=== PATIENT | male | born 1960 | race Caucasian/White ===

== ENCOUNTER → 2018-01-13 08:02 | Outpatient (CLI) | payer BC, SELFPAY ==
--- NOTE | 2018-01-13 08:05 | RAD_ITS ---
STUDY: X-RAY - ABDOMEN/PELVIS REASON FOR EXAM: Male, 57 years old. 2 month history of left-sided pain. TECHNIQUE: Two AP supine views of the abdomen and pelvis. COMPARISON: None. FINDINGS: Normal visualized lung bases. There is a moderate amount of colonic fecal material. The visualized liver, spleen and kidneys are grossly normal in size and morphology. Normal soft tissue structures. There are diffuse degenerative changes of the visualized lumbar spine. RAD/Abdomen Single View IMPRESSION: Moderate amount of fecal material is seen in the colon. Electronically Signed: Erwin Gonzalez MD at 9:39 EST Tel [phone], Service support ,
== END ==
PROVIDERS: Family Provider Family Medicine; PCP Family Medicine; Visit Provider Family Medicine
DX: N20.0 Calculus of kidney (principal); M54.5 Low back pain
CPT/HCPCS: 74018

== ENCOUNTER → 2018-10-19 16:43 | Outpatient (CLI) | payer BC, SELFPAY ==
[2018-10-19 17:46] LABS: Amphetamine Urine VISTA NEGATIVE (<1000 ng/mL); Barbiturate Urine VISTA NEGATIVE (< 200 ng/mL); Benzodiazepine Urine VISTA NEGATIVE (< 200 ng/mL); Cocaine Urine VISTA NEGATIVE (< 300 ng/mL); Ecstacy Urine VISTA NEGATIVE (< 500 ng/mL); Methadone Urine VISTA NEGATIVE (< 300 ng/mL); PCP Urine VISTA NEGATIVE (< 25 ng/mL); THC Urine VISTA NEGATIVE (< 50 ng/mL); Vista UDS pH Range 5
== END ==
PROVIDERS: Family Provider Family Medicine; PCP Family Medicine; Referring Provider Anesthesiology Pain Medicine; Visit Provider Anesthesiology Pain Medicine
DX: F11.20 Opioid dependence, uncomplicated (principal)
CPT/HCPCS: 80307

== ENCOUNTER → 2018-12-06 13:55 | Outpatient (CLI) | payer BC, SELFPAY ==
--- NOTE | 2018-12-06 13:57 | RAD_ITS ---
STUDY: X-RAY - LUMBOSACRAL SPINE REASON FOR EXAM: Male, 58 years old. Back pain. TECHNIQUE: 6 view(s) of the lumbosacral spine were obtained. COMPARISON: 07/13/2017. FINDINGS: Normal lumbar lordosis. There is no substantial scoliosis. There is normal alignment of the vertebrae. No subluxation following lateral flexion and extension positioning. Minimal anterior wedging of T12 superior endplate is unchanged. Normal lumbar vertebral bodies and endplates. Mild L2-L3 and L3-L4 disc space height narrowing are unchanged. Anterior marginal spurs at L2-L3 disc level and increase in size. Small anterior marginal spurs at L3-L4 disc level have also mildly increased in size. Normal bilateral sacral ala, sacroiliac joints, and visualized sacrum. Normal visualized soft tissue structures. RAD/L/S Spine Comp/w Bending Views IMPRESSION: 1. No acute fracture or malalignment of the lumbar spine. 2. No subluxation following lateral flexion and extension positioning. 3. Less than optimal lateral view since they are overrotated. 4. Degenerative disc space height narrowing at L2-L3 and L3-L4 disc space levels are unchanged. 5. Mild increase in size of the anterior marginal spurs at L2-L3 and L3-L4 disc space levels. Electronically Signed: Júnior Baez MD at 11:04 EST , Service support ,
== END ==
PROVIDERS: Family Provider Family Medicine; PCP Family Medicine; Referring Provider Orthopaedic Surgery; Visit Provider Orthopaedic Surgery
DX: M54.16 Radiculopathy, lumbar region (principal)
CPT/HCPCS: 72114

== ENCOUNTER 2019-01-13 07:30 | Outpatient (RCR) | payer BC, SELFPAY ==
--- NOTE | 2018-12-13 08:24 | HP.PTEVAL_ITS ---
Patient's Visit Information JOHN CHOE Jr. is a 58 year old M referred to Physical Therapy by Sherine Graham MD with a diagnosis of BACK PAIN,RIGHT SI JOINT PAIN. Date of Evaluation: 12/13/18 Physical Therapist: Tino Cheney PT, Cert MDT, OCS - Visit Plan Frequency: 2x /Week Duration: 4 Weeks Plan: AQUATIC THERAPY FOR DLS -ABD/BACK,LUMBAR ROM.LE FLEXABLITY STRENGTHENING. POSTURAL EX'S - Subjective Findings: This 58 y/o male presents to physical therapy with back pain and SI joint pain. Patient back pain and radicular symptoms right leg to knee with parathesia/tingling many years. Patient symptpms progressively worse over time. Patient was see pain by management with epidural injections which helped temporarly. Pateint plans to get MRI . Patient has h/o DDD. Patient symptoms locacted on right side and and anterior thigh. Symptoms worse with lifting,bending,standing 15mins,sitting,Patient symptoms some better with sleeping. Patient pain affects sleeping. Coughing/seezing -. Bowel/bladder -. Patient has no PT in past. Patient symptoms affect QOL and job demands. VOCATION: [employer]. SOCIAL: single - Pain Right Back Pain Intensity (Out of 10): 8 Pain Intensity Range: 10 Right Lower Extremity Pain Intensity (Out of 10): 3 Pain Intensity Range: 10 Comment: thigh - Objective POSTURE: mild foward posture. GAIT: ambulates with antalgic left side reciprocal pattern. NEURO: c/o parathesia/tingling right thigh,reflexes L3-4,L4-5,L5-S1 2/3. SYMMTRIES: align. PALAPTION: unremarkable. LUMBAR ROM: flexion mod loss,extension evere loss,side glides mod loss. FLEXABLITY: hams mod loss - Special Tests L/S Slump test left side: Negative L/S Slump test right side: Negative L/S Left Straight Leg Raise: Negative L/S Right Straight Leg Raise: Positive Lumbar Standing: Flexion - Mechanical Response: No effect Lumbar Standing: Flexion - Symptoms During Testing: Increases Lumbar Standing: Flexion - Symptoms After Testing: Worse Lumbar Standing: Extension - Mechanical Response: No effect Lumbar Standing: Extension - Symptoms During Testing: Increases Lumbar Standing: Extension - Symptoms After Testing: Worse Lumbar Standing: Right Side Glides - Mechanical Response: No effect Lumbar Standing: Right Side [place] - Symptoms During Testing: Increases Lumbar Standing: Right Side [place] - Symptoms After Testing: Worse Lumbar Standing: Left Side [place] - Symptoms During Testing: Increases Lumbar Standing: Left Side [place] - Symptoms After Testing: No worse - Goals Goal 1:: Independant with Aquatic PT Goal Time Frame: 4-6 Weeks Goal 2:: Independant with posture/body mechanics for job. Goal Time Frame: 4-6 Weeks Goal 3:: Patient decrease pain lumbar and radicular symptoms by 50% mto improve function Goal Time Frame: 4-6 Weeks Goal 4:: Patient to improve lumbar ROM for function of recovery Goal Time Frame: 4-6 Weeks Goal 5:: Patient to improve back owestry score by 5 points or greater to improve QOL Goal Time Frame: 4-6 Weeks - Rehabilitation Potential Physical Therapy Diagnosis: This patient has lumbar pain with radicular symptoms with pain ,poor lumbar ROM weakness LE worse with bending,lifting standing affects job demands thus benifit from skilled PT Rehabilitation Potential: Fair - Anticipated Interventions Patient/Client Instruction: Educate patient on: Condition, Plan of Care For the Purpose of:: To decrease pain, To increase ROM, To improve muscle performance and motor function, To increase tolerance to activity/c ondition/position, To improve performance and independence with ADL's, To improve ability of physical actions for home/community/work/leisure, To improve health of tissue, To decrease soft tissue restriction, To increase flexibility/ROM, To improve ability to perform tasks related to life management Therapeutic Exercise to Include: Strength training, Body mechanics, Postural training, Flexibilty training, In an aquatic setting, Dynamic Lumbar Stabilization Comment: LE For the Purpose of:: To decrease pain, To increase ROM, To improve muscle performance and motor function, To improve ability to perform ADL's, To increase tolerance to activity/condition/position, To improve ability of physical actions for home/community/work/leisure, To improve health of tissue, To decrease soft tissue restriction, To increase flexibility/ROM Thank you for the opportunity to evaluate your patient. For Medicare and Medicare HMO plans, please review the plan of care and approve it. It will need to be FAXED BACK to us at [phone] for Medicare purposes. For Medicare only, by signing this I certify the plan of care. Please let me know if there are questions or concerns regarding this plan of care. Physician Signature: Date:_
--- NOTE | 2019-03-08 14:14 | HP.PTDCSUM ---
HP - PT D/C Summary It has been my pleasure to treat JOHN CHOE Jr. under orders from Sherine Graham MD, for the diagnosis of BACK PAIN,RIGHT SI JOINT PAIN for a total of 7 visit(s). Discharge Date: Please see the following information for a summary of their discharge status. - Subjective Subjective: Pain is about same ..not much better - Pain Right Back Pain Intensity (Out of 10): 8 Right Lower Extremity Pain Intensity (Out of 10): 8 - Overall Improvement % Improvement: 40 - Objective Objective/Function: POSTURE: mild foward posture. GAIT: mild foward posture. PALPATION: tender SI. MMT: quads/hams 4-/5 ,hip flexion 4-/5,ankle. LUMBAR ROM: flexion mod loss,extension severe loss,side glides mod. FLEXABLITY: Hams mod tight - Goals Goal 1:: Independant with Aquatic PT Goal Progress: Progressing Goal 2:: Independant with posture/body mechanics for job. Goal Progress: Progressing Goal 3:: Patient decrease pain lumbar and radicular symptoms by 50% mto improve function Goal Progress: Progressing Goal 4:: Patient to improve lumbar ROM for function of recovery Goal Progress: Progressing Goal 5:: Patient to improve back owestry score by 5 points or greater to improve QOL Goal Progress: Goal Met - Plan Plan: RTD - D/C Information If there are questions or concerns regarding this patient's physical therapy, please feel free to call me at [phone]. Thank you for the referral of this patient. Sincerely, Tino Cheney, PT, Cert MDT, OCS
== END 2019-01-13 19:00 | disposition home or self-care (01) ==
LOC: PT 07:30
PROVIDERS: Family Provider Family Medicine; PCP Family Medicine; Referring Provider Orthopaedic Surgery; Visit Provider Orthopaedic Surgery
DX: M54.9 Dorsalgia, unspecified (principal); M53.3 Sacrococcygeal disorders, not elsewhere classified
CPT/HCPCS: 97113; 97162; 97530

== ENCOUNTER → 2019-04-11 17:22 | Outpatient (CLI) | payer BC, SELFPAY ==
[2019-04-11 18:14] LABS: Amphetamine Urine VISTA NEGATIVE (<1000 ng/mL); Barbiturate Urine VISTA NEGATIVE (< 200 ng/mL); Benzodiazepine Urine VISTA NEGATIVE (< 200 ng/mL); Cocaine Urine VISTA NEGATIVE (< 300 ng/mL); Ecstacy Urine VISTA NEGATIVE (< 500 ng/mL); Methadone Urine VISTA NEGATIVE (< 300 ng/mL); PCP Urine VISTA NEGATIVE (< 25 ng/mL); THC Urine VISTA NEGATIVE (< 50 ng/mL); Vista UDS pH Range 5
== END ==
PROVIDERS: Family Provider Family Medicine; PCP Family Medicine; Referring Provider Anesthesiology Pain Medicine; Visit Provider Anesthesiology Pain Medicine
DX: F11.20 Opioid dependence, uncomplicated (principal)
CPT/HCPCS: 80307

== ENCOUNTER → 2019-08-21 16:23 | Outpatient (CLI) | payer BC, SELFPAY ==
[2019-08-21 16:27] LABS: Bacteria 0 SEEN /hpf (None Seen); Mucous, Urine 0 SEEN /hpf (<or=2+); Red Blood Cells-Urine 0 SEEN /hpf (0-5); Squamous Epithelial Cells - UA 0 SEEN /hpf (0-5); White Blood Cells 0 SEEN /hpf (0-5)
[2019-08-21 17:29] LABS: Color, Urine Yellow (Yellow); Glucose, Dipstick Normal (Normal); Ketone-Dipstick 5 mg/dl (Negative); Leukocyte Esterase-Dipstick Negative /ul (Negative); Nitrite-Dipstick Negative (Negative); Occult Blood-Urine 50 /ul (Negative); Protein-Dipstick Negative (Negative); Urine Bilirubin Dipstick Negative (Negative); Urine Clarity Clear (Clear); Urine Urobilinogen Normal (Normal)
[2019-08-21 17:34] LABS: Absolute Lymphocyte Count 3.66 X10^3/uL (0.83-4.51); Absolute Neutrophil Count 4.3 X10^3/uL (2.0-7.7); Basophil# 0.03 X10^3/uL; Basophil% 0.3 % (0-1); Eosinophil# 0.21 X10^3/uL; Eosinophils% 2.3 % (0-5); Hematocrit 50.6 % (40-54); Hemoglobin 16.2 g/dL (13.0-16.5); Lymphocyte # 3.66 X10^3/ul (4.0); Lymphocyte % 40.4 % (19-41); Mean Corpuscular Volume 93.7 fL (80-94); Monocyte# 0.81 X10^3/uL; Monocyte% 8.9 % (0-10); NRBC Flagged by Analyzer 0 % (0-5); Neutrophil # 4.33 X10^3/uL (2.7-7.7); Neutrophil % 47.8 % (47-70); Platelet Count 208 K/mm3 (150-450); RBC Distribution Width CV 14.2 % (11.6-14.6); RBC Distribution Width SD 48.7 fl (35.1-43.9); White Blood Count 9.1 K/mm3 (4.4-11.0)
[2019-08-21 18:18] LABS: AST(SGOT) 13 U/L (15-37); Alanine Aminotransfer ALT/SGPT 34 U/L (16-61); Albumin, Serum 3.7 g/dL (3.2-5.0); Alkaline Phosphatase 97 U/L (45-117); Anion Gap 4 (5-15); BUN 17 mg/dL (7-18); BUN/Creat Ratio 14.5 RATIO (10-20); Calcium,Total 9.2 mg/dL (8.5-10.1); Chloride 108 mmol/L (98-107); Cholesterol 177 mg/dL (200); Creatinine, Serum 1.17 mg/dL (0.70-1.30); EST Glomerular Filtration Rate 67 mL/min (>60); Est Glom Filt Rate - Afr Amer 82 mL/min (>60); Globulin 3.8 g/dL (2.2-4.2); Glucose 83 mg/dL (74-106); High Density Lipoprotein 41 mg/dL; PSA,Total- Diagnostic 2.16 ng/mL (0.0-4.0); Protein, Total 7.5 g/dL (6.4-8.2); Sodium Level 143 mmol/L (136-145); Triglycerides 221 mg/dL; Very Low Density Lipoprotein 44 mg/dL (5-40)
[2019-08-21 18:20] LABS: Vitamin D,25 Hydroxy 26.9 ng/mL (29.95-100.01)
== END ==
PROVIDERS: Family Provider Family Medicine; PCP Family Medicine; Visit Provider Family Medicine
DX: R31.9 Hematuria, unspecified (principal); I10 Essential (primary) hypertension; M81.0 Age-related osteoporosis without current pathological fracture; R10.9 Unspecified abdominal pain
CPT/HCPCS: 36415; 80053; 80061; 81001; 82306; 84153; 85025

== ENCOUNTER → 2019-09-15 14:23 | Outpatient (CLI) | payer BC, SELFPAY ==
--- NOTE | 2019-09-15 14:26 | CT_ITS ---
STUDY: CT ABDOMEN AND PELVIS WITH AND WITHOUT CONTRAST REASON FOR EXAM: Male, 58 years old. Hematuria RADIATION DOSAGE (If Supplied By Facility): CTDIvol = ( 17.41 ) mGy, DLP = ( 2041.55 ) mGycm TECHNIQUE: Transaxial images were obtained from the dome of the diaphragm to the symphysis pubis without oral contrast. IV Isovue 300 100ml was administered per departmental renal protocol. Sagittal and coronal images were reconstructed. Individualized dose optimization techniques were used for this CT. COMPARISON: None. FINDINGS: The visualized lung bases are unremarkable. The visualized portions of the heart are within normal limits. Normal liver. Normal gallbladder and extrahepatic biliary system. Normal spleen. Normal pancreas. Normal bilateral adrenal glands. Normal right kidney. Normal left kidney. Normal visualized stomach. Normal small intestine. Normal colon. Colonic diverticulosis is present. The appendix is removed. Normal abdominal aorta. Normal inferior vena cava. Normal retroperitoneum. Normal urinary bladder. Normal abdominal wall. Normal osseous structures. Mild multilevel osteophytosis is present. CT/CT Abd/Pelvis W/WO Contrast IMPRESSION: No acute pathology in the abdomen or pelvis. Colonic diverticulosis without evidence of inflammation. Electronically Signed: Naman Ayala, at 16:37 EDT Tel , Service support ,
== END ==
PROVIDERS: Family Provider Family Medicine; PCP Family Medicine; Referring Provider Nurse Practitioner Adult Health; Visit Provider Nurse Practitioner Adult Health
DX: R10.30 Lower abdominal pain, unspecified (principal); R31.9 Hematuria, unspecified
CPT/HCPCS: 74178; Q9967

== ENCOUNTER → 2019-09-26 14:09 | Outpatient (CLI) | payer BC, SELFPAY ==
[2019-09-26 13:51] VITALS: BMI 31.9
--- NOTE | 2019-09-26 14:11 | CT_ITS ---
STUDY: LOW DOSE CT LUNG CANCER SCREENING REASON FOR EXAM: Male, 58 years old. The patient smoked 1.5 packs per day for 20 years. The patient quit 2 years ago. RADIATION DOSAGE (If Supplied By Facility): CTDIvol = ( 3.40 ) mGy, DLP = ( 125.90 ) mGycm TECHNIQUE: No contrast was administered. Low dose technique was utilized (average mAS-38 and kVp 120). 1.25 mm axial source images with a slice interval of 1.25-mm were reconstructed in lung windows. 2.5 mm axial source images with a slice interval of 2.5-mm were reconstructed in lung windows. 5.0 mm axial source images with a slice interval of 5.0-mm were reconstructed in soft tissue windows. Nodule measured using lung windows on PACS and/or independent workstation with automated measurement of minimum and maximum diameter. Nodule measurement reported as average diameter rounded to the nearest whole number. Growth is defined as an increase ins size of greater than 1.5 mm. COMPARISON: None. NODULES: No suspicious nodules are seen. Emphysema: No significant emphysematous changes. Endobronchial lesion: None Aorta: Unremarkable Coronary arteries: Coronary artery calcification Mediastinal nodes: Small scattered benign-appearing mediastinal lymph nodes. Other chest and abdominal findings: CT/Low Dose CT Lung Screening IMPRESSION: Lung-RADS category 2 - Continue annual screening with LDCT in 12 months. IMPORTANT NOTES FOR USE: ACR Lung-RADS Version 1.0 Assessment Categories Release Date: March 26, 2014 Category: Coded 0-4 bases on nodule(s) with highest degree of suspicion. Negative screen is defined as categories 1 and 2; a positive screen is defined as categories 3 and 4. Category 3 and 4A nodules that are unchanged on interval CT should be coded as category 2, and individuals returned to screening in 12 months. Category 4X: Category 3 or 4 nodules with additional imaging findings that increase the suspicion of lung cancer, such as spiculation, GGN that doubles in size in 1 year, enlarged lymph notes, etc. Category Modifiers: S (significant finding unrelated to lung cancer) and C (prior history of treated lung cancer) may be added to the 0-4 Lung-RADS Electronically Signed: Erwin Gonzalez, at 15:20 EDT , Service support ,
== END ==
PROVIDERS: Family Provider Family Medicine; PCP Family Medicine; Referring Provider Nurse Practitioner Family; Visit Provider Nurse Practitioner Family
DX: Z12.2 Encounter for screening for malignant neoplasm of respiratory organs (principal); Z87.891 Personal history of nicotine dependence
CPT/HCPCS: G0297

== ENCOUNTER → 2019-12-26 15:26 | Outpatient (CLI) | payer BC, SELFPAY ==
[2019-09-26 13:51] VITALS: BMI 31.9
[2019-12-26 17:30] LABS: Anion Gap 5 (5-15); BUN 24 mg/dL (7-18); BUN/Creat Ratio 21.8 RATIO (10-20); Calcium,Total 9.4 mg/dL (8.5-10.1); Chloride 107 mmol/L (98-107); EST Glomerular Filtration Rate 72 mL/min (>60); Est Glom Filt Rate - Afr Amer 88 mL/min (>60); Glucose 117 mg/dL (74-106); Potassium 3.4 mmol/L (3.5-5.1); Sodium Level 139 mmol/L (136-145)
== END ==
PROVIDERS: Family Provider Family Medicine; PCP Family Medicine; Visit Provider Family Medicine
DX: I10 Essential (primary) hypertension (principal)
CPT/HCPCS: 36415; 80048

== ENCOUNTER → 2020-01-16 15:00 | Outpatient (CLI) | payer BC, SELFPAY ==
[2019-09-26 13:51] VITALS: BMI 31.9
[2020-01-16 17:32] LABS: Anion Gap 6 (5-15); BUN 26 mg/dL (7-18); Chloride 108 mmol/L (98-107); Creatinine, Serum 1.37 mg/dL (0.70-1.30); EST Glomerular Filtration Rate 56 mL/min (>60); Est Glom Filt Rate - Afr Amer 68 mL/min (>60); Glucose 92 mg/dL (74-106); Potassium 3.5 mmol/L (3.5-5.1); Sodium Level 139 mmol/L (136-145)
== END ==
PROVIDERS: PCP Family Medicine; Visit Provider Family Medicine
DX: I10 Essential (primary) hypertension (principal)
CPT/HCPCS: 36415; 80048

== ENCOUNTER → 2020-06-06 16:15 | Outpatient (CLI) | payer BC, SELFPAY ==
[2019-09-26 13:51] VITALS: BMI 31.9
--- NOTE | 2020-06-06 16:17 | RAD_ITS ---
STUDY: X-RAY - CERVICAL SPINE REASON FOR EXAM: Male, 59 years old. right shoulder pain, neck pain, weakness TECHNIQUE: 5 view(s) of the cervical spine were obtained. COMPARISON: None FINDINGS: Normal anterior atlantoaxial articulation. Normal odontoid process. There is straightening of the normal cervical lordosis. Normal vertebral bodies and endplates. Moderately advanced disc narrowing at C5-6 with spondylitic endplate changes. Mild to moderate disc narrowing and spondylitic endplate changes at C4-5 and C6-7. Minimal degenerative changes at C2-3 and C3-4. Mild bony foraminal narrowing at C4 on the right and and C5 on the left. The soft tissue structures are unremarkable. RAD/Cerv Spine 4 or 5 Views IMPRESSION: Straightening of the cervical spine with otherwise normal alignment. Degenerative disc and joint changes as stated above. Electronically Signed: Lexis Montanez MD at 16:44 EDT , Service support ,
== END ==
PROVIDERS: PCP Family Medicine; Referring Provider Family Medicine; Visit Provider Family Medicine
DX: M50.90 Cervical disc disorder, unspecified, unspecified cervical region (principal)
CPT/HCPCS: 72050

== ENCOUNTER 2020-06-16 04:34 | Emergency (ER) | payer BC, SELFPAY ==
[2019-09-26 13:51] VITALS: BMI 31.9
[2020-06-16 04:35] VITALS: BP 164/102; PULSE 86; RESP 18; TEMP 36.8; O2SAT 98; BMI 31.8
--- NOTE | 2020-06-16 04:58 | ED.VIS.GEN ---
History of Present Illness Chief Complaint: Upper Extremity Injury Past Medical History - Allergies and Home Meds Allergies/Adverse Reactions: Allergies No Known Allergies Allergy (Verified 06/16/20 04:39) Primary Care Physician: Denis Hunter MD [Primary Care Provider] - Smoking Status: Current every day smoker Physical Exam Vital Signs/Narrative: Vital Signs Temp Pulse Resp BP Pulse Ox 06/16/20 04:35 98.3 F 86 18 164/102 H 98 ED Disposition - Plan for ED Patient: Disposition: Home or Assisted Living Diagnosis: Cervical radiculopathy Instructions: ED CERVICAL RADICULOPATHY Prescriptions: Oxycodone HCl/Acetaminophen [Percocet 5/325] 1 tab PO Q6H PRN PRN 3 Days #12 tab PRN Reason: Pain Prescription Printed Referrals: Denis Hunter MD [Primary Care Provider] -
[2020-06-16] MEDS: HYDROmorphone 0.5 MG/0.5 ML SYRINGE SC (05:17)
--- NOTE | 2020-06-16 05:41 | ED.RN ---
NO REACTION NOTED BY THIS RN, PT D/C.
--- NOTE | 2020-06-16 07:16 | ED.DCSUM_ITS ---
History of Present Illness Chief Complaint: Upper Extremity Injury Informant: Patient Narrative: 59-year-old male presents for pain in the right trapezius and neck with paresthesias down his right arm. This is not a new problem. He saw his PCP recently and was treated for with muscle relaxers and steroids. He has a pain management referral for 2 days from now but states that the pain is increased. He had x-rays done as an outpatient already which his PCP told him more concerning for bulging disc. This is why he sent him to pain management. Past Medical History - Allergies and Home Meds Allergies/Adverse Reactions: Allergies No Known Allergies Allergy (Verified 06/16/20 04:39) Primary Care Physician: Denis Hunter MD [Primary Care Provider] - Prior records reviewed: Yes Surgical History: noncontributory Lives: Spouse/ Significant Other Smoking Status: Current every day smoker Review of Systems General: Denies: Chills, Fever Eyes: Denies: Visual changes - bilaterally ENT: Reports: Rhinorrhea. Denies: Sore throat Cardiovascular: Denies: Chest pain Respiratory: Denies: Dyspnea, Cough Gastrointestinal: Denies: Abdominal pain Musculoskeletal: Reports: Neck pain, Extremity Pain - Shoulder and right upper extremity pain Skin: Denies: Rash Physical Exam Vital Signs/Narrative: Vital Signs Temp Pulse Resp BP Pulse Ox 06/16/20 04:35 98.3 F 86 18 164/102 H 98 Inital Vital Signs reviewed: Yes General: Well nourished, Well developed, No Acute Distress Head: Normocephalic, Atraumatic Eyes: Perrl Cardiovascular: Regular rate, Regular rhythm Extremities: - - Tenderness to palpation in the right trapezius and right cervical paraspinal musculature. He is able to range his elbow, wrist, hand. He has 2+ strength throughout. Skin: Normal color, No rash Neurological: Alert, Oriented x3 Diagnostic/Tx/Re-eval - Medical Decision Making Presents with cervical radiculopathy which she has had and is referred to pain management for. He just feels that he does not have the right kind of medicine to help him with pain until he gets to his appointment. He was given a shot pain medication in the ED. He was given Percocet until he can make his follow- up appointment. Do not believe he needs lab work or imaging from the emergency department. ED Disposition - Plan for ED Patient: Disposition: Home or Assisted Living Diagnosis: Cervical radiculopathy Instructions: ED CERVICAL RADICULOPATHY Prescriptions: Oxycodone HCl/Acetaminophen [Percocet 5/325] 1 tab PO Q6H PRN PRN 3 Days #12 tab PRN Reason: Pain Prescription Printed Referrals: eDnis Hunter MD [Primary Care Provider] -
== END 2020-06-16 05:42 | disposition home or self-care (01) ==
LOC: ED 05:00
PROVIDERS: Emergency Provider Student in an Organized Health Care Education/Training Program; PCP Family Medicine
DX: M54.12 Radiculopathy, cervical region (principal); F17.200 Nicotine dependence, unspecified, uncomplicated
CPT/HCPCS: 99281; 99282

== ENCOUNTER → 2020-06-25 10:10 | Outpatient (CLI) | payer BC, SELFPAY ==
[2020-06-16 04:35] VITALS: BMI 31.8
--- NOTE | 2020-06-25 10:45 | MRI_ITS ---
STUDY: MRI CERVICAL SPINE WITHOUT CONTRAST REASON FOR EXAM: Male, 59 years old. Neck pain, right shoulder pain TECHNIQUE: Standardized fat and water weighted pulse sequences were obtained in the sagittal and axial planes. COMPARISON: X-ray dated 06-06-20 FINDINGS: Cervical straightening. No significant scoliosis. Mild paraspinal muscle atrophy. No acute soft tissue process. Perineural cyst. No abnormal cord signal. Vascular flow voids symmetric. Mild/moderate facet joint arthrosis. Normal foramen magnum and brainstem-cervical cord junction. Normal craniovertebral junction. Normal anterior atlantoaxial articulation. Normal odontoid process. C2-3: Normal endplates. Disc desiccation. Normal central canal and intervertebral neural foramina. C3-4: Minimal endplate spondylosis. Disc bulge, tiny central protrusion, with mild central canal narrowing. Moderate left and mild right neural foraminal narrowing. C4-5: Mild endplate spondylosis. Asymmetric right-sided protrusion. Mild central canal narrowing. Severe right and mild left neural foraminal narrowing. C5-6: Mild endplate spondylosis. Disc bulge with mild central canal narrowing. Severe left and mild/moderate right neural foraminal narrowing. C6-7: Normal endplates. Central disc protrusion. Minimal central canal narrowing. No significant neural foraminal narrowing. C7-T1: Normal endplates. Normal disc height, signal and morphology. Normal central canal and intervertebral neural foramina. MRI/Spine Cervical (Routine) IMPRESSION: No abnormal cord signal Multilevel intervertebral disc disease with mild regions of central canal narrowing Multilevel neural foraminal narrowing most severe at the C3-4, C4-5 and C5-6 levels Cervical straightening with mild/moderate osteoarthritis Electronically Signed: Sanjeev Hanna DO at 13:07 EDT Tel , Service support ,
== END ==
PROVIDERS: PCP Family Medicine; Referring Provider Anesthesiology Pain Medicine; Visit Provider Anesthesiology Pain Medicine
DX: M54.2 Cervicalgia (principal); M79.603 Pain in arm, unspecified
CPT/HCPCS: 72141

== ENCOUNTER 2020-07-22 09:57 | Emergency (ER) | payer BC, SELFPAY ==
[2020-07-22 09:58] VITALS: BP 153/90; PULSE 89; RESP 17; TEMP 36.5; O2SAT 98; BMI 31.6
--- NOTE | 2020-07-22 10:12 | EKG12_ITS ---
Test Reason : Blood Pressure : / mmHG Vent. Rate : 087 BPM Atrial Rate : 087 BPM P-R Int : 172 ms QRS Dur : 084 ms QT Int : 360 ms P-R-T Axes : 036 -20 067 degrees QTc Int : 433 ms Normal sinus rhythm Normal ECG Confirmed by TALITA RILEY, RONAL ([id number]), videotape editor VON SCHAFER ([id number]) on 07/23/2020 9:23:15 AM Referred By: ANDREW Confirmed By:RONAL SANON MD
--- NOTE | 2020-07-22 10:13 | CT_ITS ---
STUDY: CTA CHEST REASON FOR EXAM: Male, 59 years old. SOB, PE, ANXIETY, RECENT NECK SURGERY RADIATION DOSAGE (If Supplied By Facility): CTDIvol = ( 12.15 ) mGy, DLP = ( 506.98 ) mGycm TECHNIQUE: The examination was performed with the intravenous administration of IV 100mL Isovue-370. Post-processing of the angiographic images was performed, with multiplanar reformation and 3D reconstruction. Individualized dose optimization techniques were used for this CT. COMPARISON: None. FINDINGS: Normal enhancement of the main pulmonary artery and right and left pulmonary arteries. Normal enhancement of the bilateral peripheral pulmonary arteries. There is no demonstrated pulmonary embolism. Normal thoracic aorta and visualized great vessels. There is no demonstrated aortic dissection. Normal heart and pericardium. Normal mediastinum. Normal hilar regions. Normal visualized trachea and bronchi. The lungs are well expanded. Minimal increased linear markings at the lung bases suggestive of bibasilar atelectasis and/or possible scarring. Normal pleura. Normal chest wall structures. Normal osseous structures. Normal visualized upper abdomen. CT/CTA Chest W/WO Contrast IMPRESSION: No evidence of pulmonary emboli. Mild area of increased linear markings at the lung bases suggestive of linear atelectasis and/or scarring. Electronically Signed: Erwin Gonzalez, at 11:25 EDT , Service support ,
[2020-07-22 10:34] LABS: Absolute Lymphocyte Count 1.95 X10^3/uL (0.83-4.51); Absolute Neutrophil Count 6.9 X10^3/uL (2.0-7.7); Basophil# 0.03 X10^3/uL; Basophil% 0.3 % (0-1); Hematocrit 47.2 % (40-54); Lymphocyte # 1.95 X10^3/ul (4.0); Mean Corp Hgb Conc 33.9 g/dL (32-36); Mean Corpuscular Hgb 31.7 pg (27.0-32.0); Mean Corpuscular Volume 93.5 fL (80-94); Mean Platelet Vol. 9.2 fl (6.2-12.0); Monocyte# 0.66 X10^3/uL; Monocyte% 6.8 % (0-10); NRBC Flagged by Analyzer 0 % (0-5); Neutrophil # 6.89 X10^3/uL (2.7-7.7); Neutrophil % 70.7 % (47-70); Platelet Count 205 K/mm3 (150-450); RBC Distribution Width CV 13.7 % (11.6-14.6); RBC Distribution Width SD 46.8 fl (35.1-43.9); Red Blood Count 5.05 M/mm3 (4.6-6.2); White Blood Count 9.8 K/mm3 (4.4-11.0)
[2020-07-22 10:57] LABS: Anion Gap 6 (5-15); BUN 16 mg/dL (7-18); BUN/Creat Ratio 16.3 RATIO (10-20); Calcium,Total 8.9 mg/dL (8.5-10.1); Chloride 103 mmol/L (98-107); Creatinine, Serum 0.98 mg/dL (0.70-1.30); EST Glomerular Filtration Rate 82 mL/min (>60); Est Glom Filt Rate - Afr Amer 100 mL/min (>60); Estimated Creatinine Clearance 86.88 ml/min; Glucose 109 mg/dL (74-106); Potassium 3.9 mmol/L (3.5-5.1); Sodium Level 138 mmol/L (136-145)
--- NOTE | 2020-07-22 11:36 | ED.VISSUMM ---
- ER Visit Summary Date of Service: 07/22/20 Chief Complaint: Shortness of breath History of Present Illness: The patient is a [address] Denis Hunter. He reports he has shortness of breath that was present when he woke this morning. It was moderate at worst and is mild currently. He denies any chest pain. No fever or chills. No cough. Patient reports that his surgical fusion July [address] Denis Molina at [facility]. He was hospitalized for 1 day. He is not on anticoagulants. He reports he has neck pain that is 8 out of 10 in severity that is been controlled well with oxycodone. He does complain of mild bilateral ankle swelling. He denies any calf pain. Physical Examination: Vitals: Stable. Afebrile. General: Well-nourished and well-developed. Head: Normocephalic atraumatic. Neck: Supple, no lymphadenopathy. No JVD. Nontender. Anterior incision on the left is clean, dry, and intact. There is no erythema or induration. Cardiovascular: Regular rate and rhythm. No murmurs. Respiratory: No respiratory distress. Clear to auscultation bilaterally. Abdominal: Soft, nontender, nondistended, normal bowel sounds. No guarding, rebound, or peritoneal signs. Back: Nontender. Extremities: Nontender, no edema. Skin: Normal color, no rash. Neurologic: Alert and oriented ?3. Cranial nerves II through XII are intact. Normal strength and sensation. Psych: Normal affect. Test Results: EKG is sinus at [address] changes. Troponin is negative. Chem-7 shows a chloride 109. CBC shows 7 neutrophils 71 with immature granulocytes 1.2%. Clinical Impression(s) from Imaging Studies Chest CTA 07/22/20 10:13 IMPRESSION: No evidence of pulmonary emboli. Mild area of increased linear markings at the lung bases suggestive of linear atelectasis and/or scarring. Electronically Signed: Erwin Gonzalez, at 11:25 EDT , Service support , Emergency Department Course and Treatment: Patient refused pain medications. He is resting comfortably. Treatment Plan: Patient was discharged with an incentive spirometer. However, he reports that he is not really using this. He will be instructed to use this time times an hour while awake. Follow-up with Dr. Denis Hunter in 1 to 2 days if not improving. Follow-up with Dr. Denis Molina as previously scheduled. Return to the emergency department for any worsening symptoms. Disposition: To home in improved and stable condition. Impression: 1. Atelectasis. 2. 5-day status post cervical fusion. This note was generated with [employer] software. It may contain incorrect words, spelling, and punctuation that were not noted in review of the chart prior to signing ED Disposition - Plan for ED Patient: Instructions: ED Atelectasis Referrals: Denis Hunter MD [Primary Care Provider] - 1-2 Days if not improving
== END 2020-07-22 11:47 | disposition home or self-care (01) ==
LOC: ED 11:24
PROVIDERS: Emergency Provider Emergency Medicine; PCP Family Medicine
DX: J98.11 Atelectasis (principal); M54.2 Cervicalgia; Z98.1 Arthrodesis status; M25.471 Effusion, right ankle; M25.472 Effusion, left ankle; I10 Essential (primary) hypertension; Z72.0 Tobacco use; Z79.899 Other long term (current) drug therapy
CPT/HCPCS: 71275; 80048; 84484; 85025; 93005; 99284; Q9967

== ENCOUNTER → 2020-09-16 11:42 | Outpatient (CLI) | payer BC, SELFPAY ==
[2020-09-16 11:44] LABS: Bacteria 0 SEEN /hpf (None Seen); Mucous, Urine 0 SEEN /hpf (<or=2+); Red Blood Cells-Urine 0 SEEN /hpf (0-5); Squamous Epithelial Cells - UA 0 SEEN /hpf (0-5); White Blood Cells 0 SEEN /hpf (0-5)
[2020-09-16 15:33] LABS: Absolute Lymphocyte Count 2.77 X10^3/uL (0.83-4.51); Absolute Neutrophil Count 4.7 X10^3/uL (2.0-7.7); Basophil# 0.04 X10^3/uL; Basophil% 0.5 % (0-1); Eosinophil# 0.24 X10^3/uL; Eosinophils% 2.8 % (0-5); Hematocrit 48.5 % (40-54); Hemoglobin 15.6 g/dL (13.0-16.5); Lymphocyte # 2.77 X10^3/ul (4.0); Lymphocyte % 31.8 % (19-41); Mean Corp Hgb Conc 32.2 g/dL (32-36); Mean Corpuscular Hgb 30.1 pg (27.0-32.0); Mean Corpuscular Volume 93.4 fL (80-94); Monocyte% 10.3 % (0-10); NRBC Flagged by Analyzer 0 % (0-5); Neutrophil # 4.71 X10^3/uL (2.7-7.7); Neutrophil % 54.1 % (47-70); Platelet Count 225 K/mm3 (150-450); RBC Distribution Width CV 14.1 % (11.6-14.6); RBC Distribution Width SD 48.7 fl (35.1-43.9); Red Blood Count 5.19 M/mm3 (4.6-6.2); White Blood Count 8.7 K/mm3 (4.4-11.0)
[2020-09-16 15:41] LABS: Color, Urine Yellow (Yellow); Glucose, Dipstick Normal (Normal); Ketone-Dipstick Negative (Negative); Leukocyte Esterase-Dipstick Negative /ul (Negative); Nitrite-Dipstick Negative (Negative); Occult Blood-Urine 10 /ul (Negative); Protein-Dipstick Negative (Negative); Specific Gravity, Urine 1.015 (1.002-1.030); Urine Bilirubin Dipstick Negative (Negative); Urine Clarity Clear (Clear); Urine Urobilinogen Normal (Normal)
[2020-09-16 16:05] LABS: ALB/GLOB Ratio 0.9 RATIO (0.9-2.4); AST(SGOT) 15 U/L (15-37); Alanine Aminotransfer ALT/SGPT 26 U/L (16-61); Albumin, Serum 3.5 g/dL (3.2-5.0); Alkaline Phosphatase 83 U/L (45-117); Anion Gap 7 (5-15); BUN 17 mg/dL (7-18); BUN/Creat Ratio 15.6 RATIO (10-20); Calcium,Total 9.2 mg/dL (8.5-10.1); Chloride 105 mmol/L (98-107); Creatinine, Serum 1.09 mg/dL (0.70-1.30); EST Glomerular Filtration Rate 73 mL/min (>60); Est Glom Filt Rate - Afr Amer 88 mL/min (>60); Globulin 3.7 g/dL (2.2-4.2); Glucose 103 mg/dL (74-106); Potassium 3.9 mmol/L (3.5-5.1); Protein, Total 7.2 g/dL (6.4-8.2); Sodium Level 138 mmol/L (136-145)
[2020-09-16 16:13] LABS: BNP,B-Type NATRIURETIC PEPTIDE 13.8 pg/mL (0-100)
== END ==
PROVIDERS: PCP Family Medicine; Visit Provider Family Medicine
DX: I10 Essential (primary) hypertension (principal); R06.00 Dyspnea, unspecified; R60.9 Edema, unspecified
CPT/HCPCS: 36415; 80053; 81001; 83880; 85025

== ENCOUNTER → 2020-10-02 09:45 | Outpatient (CLI) | payer BC, SELFPAY ==
[2020-10-02 12:41] LABS: Anion Gap 9 (5-15); BUN 21 mg/dL (7-18); BUN/Creat Ratio 18.1 RATIO (10-20); Calcium,Total 8.7 mg/dL (8.5-10.1); Chloride 110 mmol/L (98-107); Creatinine, Serum 1.16 mg/dL (0.70-1.30); EST Glomerular Filtration Rate 68 mL/min (>60); Est Glom Filt Rate - Afr Amer 82 mL/min (>60); Glucose 139 mg/dL (74-106); Potassium 3.7 mmol/L (3.5-5.1); Sodium Level 140 mmol/L (136-145)
== END ==
PROVIDERS: PCP Family Medicine; Visit Provider Family Medicine
DX: I10 Essential (primary) hypertension (principal)
CPT/HCPCS: 36415; 80048

== ENCOUNTER 2022-02-16 15:16 | Emergency (ER) | payer BC, SELFPAY ==
[2022-02-16 15:16] VITALS: BP 163/91; PULSE 107; RESP 16; TEMP 37; O2SAT 99; BMI 32.5
--- NOTE | 2022-02-16 16:18 | EDS_ITS ---
HPI History of Present Illness Chief Complaint: Back Informant: patient Onset/Context/Timing Onset: Days Context: Gradual Onset Timing: Continuous Quality: Aching and Throbbing Location: Lumbar Current Severity: Moderate Maximum Severity: Severe Worsened by: improves with Movement, Ambulation and Bending Associated Symptoms Associated Symptoms: Numbness, Tingling and Radiation to Right Leg; Negative for Urinary Retention and Urinary Incontinence Narrative Narrative: Patient present secondary to back pain. He has a history of back problems and had previously been getting nerve blocks with Dr. Figueroa. Patient states that they are no longer working and he was told by Dr. Santa to follow-up with a spine surgeon. He woke Wednesday morning with increased right lower back pain that wraps around to the front of the right thigh. No new trauma or change in activity. No problems with bowel or bladder control. No fever. 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 Hypertension Kidney stones Lumbar disc disease Migraine Osteoporosis Plantar fasciitis Polyp of colon Home Medications tamsulosin 0.4 mg PO QHS 09/26/19 [History Last Taken Unknown] amlodipine 5 mg PO DAILY 06/16/20 [History Last Taken Unknown] hydrochlorothiazide 12.5 mg PO DAILY 06/16/20 [History Last Taken Unknown] oxycodone 5 mg PO Q6H PRN 07/22/20 [History Last Taken Unknown] cyclobenzaprine 10 mg PO BID PRN #10 tab 02/16/22 [Rx Last Taken Unknown] naproxen [Naprosyn] 500 mg PO BID PRN #20 tab 02/16/22 [Rx Last Taken Unknown] prednisone 60 mg PO DAILY #15 tab 02/16/22 [Rx Last Taken Unknown] Allergy/AdvReac Type Severity Reaction Status Date / Time No Known Allergies Allergy Verified 02/16/22 15:18 Family History Father Diabetes Mother Breast cancer Surgical History History of appendectomy Social History Smoking Status: Current every day smoker tobacco type: cigarettes Tobacco: How many years used: 30 how long ago did patient quit smokin YEARS second hand exposure: No quit status: quit date established counseling given: provider counseling ROS ROS ED Constitutional Constitutional ED: Denies chills or fever(s) Eyes Eyes: Denies blurry vision or change in vision ENT ENT ED: Denies ear pain Cardiovascular Cardiovascular: Denies chest pain or palpitations Respiratory/Chest Respiratory/Chest: Denies dyspnea or sputum Gastrointestinal Gastrointestinal: Denies abdominal pain, diarrhea, nausea or vomiting Genitourinary Genitourinary ED: Denies dysuria Musculoskeletal Musculoskeletal: Reports back pain Neurologic Neurologic: Reports paresthesias; Denies headache(s) Hematologic/Lymphatic Hematologic/Lymphatic: Denies easy bleeding or easy bruising Allergic/Immunologic Allergic/Immunologic ED: Denies urticaria EXAM Physical Exam Const Vital Signs: 02/16/22 15:16 Temperature 98.6 F Temperature Source Temporal Pulse Rate 107 H Respiratory Rate 16 Blood Pressure 163/91 H Blood Pressure Mean 115 Pulse Ox 99 Oxygen Delivery Method Room Air Positive well nourished and well developed General Appearance ED: well developed HEENT Reports moist mucous membranes Eyes PERRL and EOMs intact bilaterally Neck supple Resp normal respiratory effort and clear to auscultation bilaterally Cardio regular rate and regular rhythm GI normal to inspection, nondistended, normoactive bowel sounds, soft to palpation and non-tender Back/Spine normal to inspection Back/Spine Narrative: Reproducible tenderness in the right mid lumbar paraspinal muscles with palpable spasm. No overlying skin erythema or rash. Extremity normal to inspection Neuro oriented x3 Neuro Narrative: Good strength with testing of the lower extremities. Patient does report slight decrease sensation to light touch over the right thigh. Sensorium / Orientation: alert Psych mental status grossly normal Skin no rashes or lesions noted MDM [facility] Treatment and Re-Evaluation Narrative: Patient has a history of chronic back pain with an acute flare. There is no new trauma. No red flag warnings. Patient's OARRS report was checked. Has been receiving regular prescriptions from his pain management doctor but no other prescriptions. Patient will continue on his oxycodone. I will write him for Flexeril, Naprosyn, prednisone. He received an injection of morphine here for pain control. He will be referred to both Dr. Hercules and Dr. Chato vargas for spine surgery evaluation. Discharge Plan Triage Chief Complaint: Back ED Provider: Claribel Wang Dx/Rx/DC Orders Clinical Impression: Back pain, Lumbar radiculopathy Instructions: ED Back Pain (Acute or Chronic) Prescriptions: New naproxen [Naprosyn] 500 mg tablet 500 mg PO BID PRN (Reason: pain) Qty: 20 RF: 0 cyclobenzaprine 10 mg tablet 10 mg PO BID PRN (Reason: muscle spasm) Qty: 10 RF: 0 prednisone 20 mg tablet 60 mg PO DAILY Qty: 15 RF: 0 No Action tamsulosin 0.4 MG capsule 0.4 mg PO QHS RF: 0 amlodipine 5 MG tablet 5 mg PO DAILY RF: 0 hydrochlorothiazide 12.5 mg tablet 12.5 mg PO DAILY RF: 0 oxycodone 5 MG capsule 5 mg PO Q6H PRN (Reason: Pain Score 1-10/10) RF: 0 Stand Alone Forms: ED Work / School Excuse Primary Care Provider: Denis Hunter Referrals: Naman Hercules DO [STAFF PHYSICIAN] - As soon as possible Ousmane Hitchcock DO [STAFF PHYSICIAN] - As soon as possible Denis Hunter MD [Primary Care Provider] - Disposition Disposition: Home, Self Care
[2022-02-16] MEDS: morphine 10 MG/ML Syringe IM (16:31)
== END 2022-02-16 16:55 | disposition home or self-care (01) ==
LOC: ED 16:32
PROVIDERS: Emergency Provider Emergency Medicine; PCP Family Medicine; Visit Provider Emergency Medicine
DX: M54.9 Dorsalgia, unspecified (principal); M54.16 Radiculopathy, lumbar region; G89.29 Other chronic pain; I10 Essential (primary) hypertension; N40.1 Benign prostatic hyperplasia with lower urinary tract symptoms; R35.1 Nocturia; F17.210 Nicotine dependence, cigarettes, uncomplicated; Z79.1 Long term (current) use of non-steroidal anti-inflammatories (NSAID); Z79.899 Other long term (current) drug therapy
CPT/HCPCS: 96372; 99282

== ENCOUNTER 2022-02-28 07:00 | Outpatient (CLI) | payer BC, SELFPAY ==
--- NOTE | 2022-02-28 07:34 | MRI_ITS ---
STUDY: MRI LUMBAR SPINE WITHOUT CONTRAST REASON FOR EXAM: Male, 61 years old. DDD, RADICULOPATHY, RT LEG PAIN, PREV MR 2017 TECHNIQUE: Standardized fat and water weighted pulse sequences were obtained in the sagittal and axial planes. COMPARISON: MRI lumbar spine without contrast 08/19/2017. FINDINGS: T11-T12: (Sagittal only). Normal T11 inferior endplate. Mild old central compression fracture of the T12 superior endplate causing increased central disc space height. This is unchanged. No ventral extradural defect. Normal central canal and bilateral intervertebral neural foramina. T12-L1: Normal endplates. Normal disc height, hydration and morphology. No ventral extradural defect. Normal central canal and bilateral intervertebral neural foramina. Normal lumbar lordosis. There is no substantial scoliosis. Normal conus medullaris that terminates at the upper L1 vertebral body level. L1-2: Normal endplates. Normal disc height, hydration and morphology. Normal bilateral facet joints. Normal central canal and bilateral lateral recesses. Normal bilateral intervertebral neural foramina. L2-3: Anterior marginal spurs. Normal endplates. Mild disc space height narrowing. Mild ventral extradural defect is small posterior annular bulging disc. Normal facet joints. Normal central canal and bilateral lateral recesses. Normal bilateral intervertebral neural foramina. L3-4: MODIC type II degenerative vertebral marrow fatty changes underneath the right side of the vertebral endplates. Pronounced right-sided disc space height narrowing. Normal facet joints. Prominent dorsal epidural lipomatosis. Normal central canal and bilateral lateral recesses. Normal bilateral intervertebral neural foramina L4-5: Schmorl''s node in the anterior L5 superior endplate. Moderate disc space height narrowing. Mild asymmetric degenerative facet arthropathy. Mild ventral extra dural defect due to small posterior bulging annulus but unchanged. Normal central canal and bilateral lateral recesses. Mild stenosis of the right intervertebral neural foramen. Normal left intervertebral neural foramen. L5-S1: MODIC type II degenerative vertebral marrow fatty changes underneath the left side of the vertebral endplates. Pronounced left-sided disc space height narrowing. Normal facet joints. Normal central canal and bilateral lateral recesses. Mild stenosis of the left intervertebral neural foramen. Normal right intervertebral neural foramen. Normal visualized sacral ala. Normal visualized paraspinous soft tissue structures. MRI/Spine Lumbar (Routine) IMPRESSION: 1. No MRI evidence of lumbar extruded disc fragment. 2. Pronounced right-sided L3-L4 disc space height narrowing with MODIC type II changes of the vertebral marrow underneath the right side of the vertebral endplates. 3. Pronounced left-sided L5-S1 disc space height narrowing with MODIC type II vertebral marrow changes underneath the left side of the vertebral endplates. 4. Mild old central compression fracture of the T12 superior endplate is unchanged. Electronically Signed: Júnior Baez MD at 19:52 EDT ,
== END 2022-02-28 23:59 | disposition home or self-care (01) ==
LOC: MRI 07:08
PROVIDERS: PCP Family Medicine; Visit Provider Family Medicine
DX: M47.26 Other spondylosis with radiculopathy, lumbar region (principal)
CPT/HCPCS: 72148

== ENCOUNTER 2022-07-11 14:35 | Emergency (ER) | payer BC, SELFPAY ==
[2022-07-11 14:36] VITALS: BP 153/99; PULSE 92; RESP 18; TEMP 37.4; O2SAT 96; BMI 33.5
[2022-07-11 14:58] VITALS: BP 134/85; PULSE 92; RESP 16; O2SAT 96
--- NOTE | 2022-07-11 15:01 | ED.VIS.BACK ---
HPI History of Present Illness Chief Complaint: Back Narrative Narrative: 61-year-old male presenting with back pain. He states he is on oxycodone, baclofen, gabapentin currently and he still having pain. Patient is postop day #4 status post disc replacements at L3, L4, L5 and states has had hardware placed. He states in the hospital he was able to ambulate with a walker down the hallway and back. He states he is still able to ambulate some with assistance from his . He denies any new trauma. The patient does state that he still has the radicular pain down both legs. He states his right leg is worse and this is no different than when he was in the hospital. He states that his surgeon told him this will get better over time and the dust will settle. Patient was discharged home yesterday and was still in pain so he called the nurse on-call who spoke with the physician and was told to come to the nearest emergency room. Patient had his procedure done at [facility] in [place]. No loss of bladder or bowel control. No saddle anesthesia. 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 Hypertension Kidney stones Lumbar disc disease Migraine Osteoporosis Plantar fasciitis Polyp of colon Home Medications tamsulosin 0.4 mg capsule 0.4 mg PO QHS 09/26/19 [History Last Taken Unknown] amlodipine 5 mg tablet 5 mg PO DAILY 06/16/20 [History Last Taken Unknown] hydrochlorothiazide 12.5 mg tablet 12.5 mg PO DAILY 06/16/20 [History Last Taken Unknown] oxycodone 5 mg capsule 5 mg PO Q6H PRN Pain Score 1-09/0707/22/20 [History Last Taken Unknown] naproxen 500 mg tablet (Naprosyn) 500 mg PO BID PRN pain #20 tabs 02/16/22 [Rx Last Taken Unknown] prednisone 20 mg tablet 60 mg PO DAILY #15 tabs 02/16/22 [Rx Last Taken Unknown] diazepam 5 mg tablet 5 mg PO Q8 PRN Muscle Spasm #12 tabs 07/11/22 [Rx Last Taken Unknown] Allergy/AdvReac Type Severity Reaction Status Date / Time No Known Allergies Allergy Verified 07/11/22 14:41 Family History Father Diabetes Mother Breast cancer Surgical History History of appendectomy Social History Smoking Status: Current every day smoker tobacco type: cigarettes Tobacco: How many years used: 30 how long ago did patient quit smokin YEARS second hand exposure: No quit status: quit date established counseling given: provider counseling ROS ROS ED Constitutional Constitutional ED: Denies chills or fever(s) Eyes Eyes: Denies change in vision ENT ENT ED: Denies rhinorrhea or sore throat Cardiovascular Cardiovascular: Denies chest pain or palpitations Respiratory/Chest Respiratory/Chest: Denies dyspnea or dyspnea on exertion Gastrointestinal Gastrointestinal: Denies abdominal pain or constipation Genitourinary Genitourinary ED: Denies dysuria or hematuria Musculoskeletal Musculoskeletal: Reports back pain and other Details: Radicular pain down both legs Integumentary Reports other Details: Incision sites on lumbar spine Neurologic Neurologic: Denies headache(s) Psychiatric Psychiatric: Denies anxiety EXAM Physical Exam Const Vital Signs: 07/11/22 14:36 07/11/22 14:58 Temperature 99.3 F H Temperature Source Temporal Pulse Rate 92 92 Respiratory Rate 18 16 Blood Pressure 153/99 H 134/85 H Blood Pressure Mean 117 101 Pulse Ox 96 96 Oxygen Delivery Method Room Air Room Air Positive well nourished General Appearance ED: NAD; Negative for pallor HEENT Reports moist mucous membranes Negative for trauma Eyes PERRL and EOMs intact bilaterally Resp normal respiratory effort and clear to auscultation bilaterally Auscultation: Negative for rales, rhonchi or wheezes Cardio regular rate and regular rhythm GI normal to inspection, nondistended, normoactive bowel sounds Back/Spine Back/Spine Narrative: Incision sites on the lumbar spine are clean, dry, intact. Extremity normal to inspection Neuro oriented x3 Motor Exam: strength 5/5 throughout Psych mental status grossly normal Skin General Skin Exam: Negative for jaundice or pallor MDM MDM MDM Narrative Medical decision making narrative: Patient given 5 mg of Valium to help with the spasms. I obtained x-rays of the lumbar spine which on my interpretation shows the hardware to be in good position. The radiologist has not interpreted this yet. I spoke with the on-call physician for Dr. Molina who did the surgery at [facility]. He stated that the patient cannot be admitted for pain control and would likely have pain. He states there is no place for him to go at home. I counseled the patient and his that he would be able to stay at [facility] given that surgery was in another facility and there is no surgeon here covering for the surgeon. We will see if the Valium helps. The patient is already on oxycodone and gabapentin. Other than postoperative pain he does not have any red flag signs or symptoms. Surgical site looks good. Radiologist did review the lumbar spine and is in agreement. Since I cannot admit the patient here at [facility] and I cannot transfer him anywhere I will give him Valium for home. I recommended that he follow-up with his surgeon outpatient. Impression: 1. Postop pain 2. Lumbar radiculopathy 3. Muscle spasms Lab Data Attestation: I reviewed the patient's lab results. Radiography Diagnostic Testing: Clinical Impression(s) from Imaging Studies Lumbar Spine X-Ray 07/11/22 15:10 IMPRESSION: No evidence of compression deformity or significant malalignment with pedicle rods and screws above showing no evidence of hardware failure. Electronically Signed: Pj Cho DO at 15:31 EDT Reading Location ID and State: [facility] / [place] , Service support , Discharge Plan Triage Chief Complaint: Back ED Provider: Mu Donohue Dx/Rx/DC Orders Instructions: ED Post Op Wound Check, Pain Prescriptions: New diazepam 5 mg tablet 5 mg PO Q8 PRN (Reason: Muscle Spasm) Qty: 12 0RF No Action tamsulosin 0.4 MG capsule 0.4 mg PO QHS amlodipine 5 MG tablet 5 mg PO DAILY hydrochlorothiazide 12.5 mg tablet 12.5 mg PO DAILY oxycodone 5 MG capsule 5 mg PO Q6H PRN (Reason: Pain Score 1-10/10) naproxen [Naprosyn] 500 mg tablet 500 mg PO BID PRN (Reason: pain) Qty: 20 0RF prednisone 20 mg tablet 60 mg PO DAILY Qty: 15 0RF Primary Care Provider: Denis Hunter Referrals: Denis Hunter MD [Primary Care Provider] - Disposition Disposition: Home, Self Care
[2022-07-11] MEDS: diazePAM 5 MG Tablet PO (15:07)
--- NOTE | 2022-07-11 15:10 | RAD_ITS ---
STUDY: X-RAY - LUMBAR SPINE REASON FOR EXAM: Male, 61 years old. back pain TECHNIQUE: 2 view(s) of the lumbar spine were obtained. COMPARISON: None FINDINGS: Normal lumbar lordosis. There is no substantial scoliosis. There is a normal alignment of the vertebrae. Multilevel endplate degenerative changes are present. Mild decreased disc space is noted though predominantly preserved. Anterior osteophyte formation is present. Posterior pedicle rods and screws are noted from L2 through L5 showing normal alignment with no evidence of underlying hardware failure Bilateral facet bone grafts are in place. Midline dermal desiree are noted. The soft tissue structures are unremarkable. RAD/Lumbar Spine 2 or 3 Views IMPRESSION: No evidence of compression deformity or significant malalignment with pedicle rods and screws above showing no evidence of hardware failure. Electronically Signed: Pj Cho DO at 15:31 EDT ,
[2022-07-11 15:58] VITALS: BP 154/87; PULSE 89; RESP 17; TEMP 37.2; O2SAT 97
== END 2022-07-11 16:02 | disposition home or self-care (01) ==
PROVIDERS: Emergency Provider Student in an Organized Health Care Education/Training Program; PCP Family Medicine; Visit Provider Student in an Organized Health Care Education/Training Program
DX: G89.18 Other acute postprocedural pain (principal); M62.838 Other muscle spasm; M54.16 Radiculopathy, lumbar region; I10 Essential (primary) hypertension; N40.1 Benign prostatic hyperplasia with lower urinary tract symptoms; R35.1 Nocturia; M81.0 Age-related osteoporosis without current pathological fracture; F17.210 Nicotine dependence, cigarettes, uncomplicated; Z79.1 Long term (current) use of non-steroidal anti-inflammatories (NSAID); Z79.52 Long term (current) use of systemic steroids; Z79.899 Other long term (current) drug therapy
CPT/HCPCS: 72100; 99284

== ENCOUNTER → 2023-03-05 | Outpatient (CLI) | payer BC, SELFPAY ==
[2023-03-05 09:22] LABS: Absolute Lymphocyte Count 2.66 X10^3/uL (0.83-4.51); Absolute Neutrophil Count 5.2 X10^3/uL (2.0-7.7); Basophil# 0.03 X10^3/uL; Basophil% 0.3 % (0-1); Eosinophil# 0.23 X10^3/uL; Eosinophils% 2.6 % (0-5); Hemoglobin 15.9 g/dL (13.0-16.5); Lymphocyte # 2.66 X10^3/ul (0.83-4.51); Mean Corp Hgb Conc 32.4 g/dL (32-36); Mean Corpuscular Hgb 29.8 pg (27.0-32.0); Mean Corpuscular Volume 91.8 fL (80-94); Mean Platelet Vol. 10.2 fl (6.2-12.0); Monocyte# 0.75 X10^3/uL; Monocyte% 8.5 % (0-10); NRBC Flagged by Analyzer 0 % (0-5); Neutrophil # 5.17 X10^3/uL (2.7-7.7); Neutrophil % 58.3 % (47-70); Platelet Count 235 K/mm3 (150-450); RBC Distribution Width SD 47.8 fl (35.1-43.9); Red Blood Count 5.34 M/mm3 (4.6-6.2); White Blood Count 8.9 K/mm3 (4.4-11.0)
[2023-03-05 09:55] LABS: Vitamin D,25 Hydroxy 60.6 ng/mL
[2023-03-05 10:03] LABS: AST(SGOT) 16 U/L (15-37); Alanine Aminotransfer ALT/SGPT 23 U/L (16-61); Albumin, Serum 3.6 g/dL (3.2-5.0); Alkaline Phosphatase 101 U/L (45-117); Anion Gap 5 (5-15); BUN 23 mg/dL (7-18); BUN/Creat Ratio 24.2 RATIO (10-20); Calcium,Total 9.3 mg/dL (8.5-10.1); Chloride 108 mmol/L (98-107); Cholesterol 159 mg/dL (200); Creatinine, Serum 0.95 mg/dL (0.70-1.30); EST Glomerular Filtration Rate 85 mL/min (>60); Est Glom Filt Rate - Afr Amer 103 mL/min (>60); Globulin 3.5 g/dL (2.2-4.2); Glucose 113 mg/dL (74-106); High Density Lipoprotein 39 mg/dL; Potassium 3.5 mmol/L (3.5-5.1); Protein, Total 7.1 g/dL (6.4-8.2); Sodium Level 141 mmol/L (136-145); T4 Free Direct 1.03 ng/dL (0.76-1.46); Triglycerides 103 mg/dL; Very Low Density Lipoprotein 21 mg/dL (5-40)
== END | disposition home or self-care (01) ==
LOC: LAB 08:09
PROVIDERS: PCP Family Medicine; Referring Provider Family Medicine; Visit Provider Family Medicine
DX: R00.0 Tachycardia, unspecified (principal); I10 Essential (primary) hypertension; E55.9 Vitamin D deficiency, unspecified
CPT/HCPCS: 36415; 80053; 80061; 82306; 84439; 84443; 85025

== ENCOUNTER → 2023-05-28 | Day surgery (SDC) | payer BC, SELFPAY ==
[2023-05-27 07:52] VITALS: BMI 32.1
[2023-05-28 10:59] LABS: Anion Gap 4 (5-15); BUN 20 mg/dL (7-18); BUN/Creat Ratio 19.2 RATIO (10-20); Calcium,Total 9.1 mg/dL (8.5-10.1); Chloride 109 mmol/L (98-107); Creatinine, Serum 1.04 mg/dL (0.70-1.30); EST Glomerular Filtration Rate 76 mL/min (>60); Est Glom Filt Rate - Afr Amer 92 mL/min (>60); Estimated Creatinine Clearance 78.76 ml/min; Glucose 130 mg/dL (74-106); Potassium 3.8 mmol/L (3.5-5.1); Sodium Level 141 mmol/L (136-145)
--- NOTE | 2023-05-28 12:23 | CL.IE_ITS ---
Patient: JOHN CHOE Study Date: 05/28/2023 Performing: Demetri Arias MD : 1960 Age: 62 Gender: male PROCEDURES PERFORMED [id number])INSERTION OF LOOP RECORDER INDICATIONS Syncope PROCEDURE DETAILS The patient was brought to the Catheterization Lab in the postabsorptive nonsedated state. Informed consent was obtained prior to the procedure. Incision was made to the left upper chest. Steri-strips applied to Lt chest area. The patient tolerated the procedure well. Estimated Blood Loss: < 10 mls IMPLANTED / EX-PLANTED DEVICES IMPLANTED DEVICE(S): ICM Loop Recorder - Critical Care Physician Assistant: [employer], Model # [id number] 11 , Serial # [id number] DEVICE PARAMETERS CONCLUSIONS / RECOMMENDATIONS Device Conclusions: Successful implantation of a patient activated loop recorder. Device Recommendations: Follow up with Primary Care Physician PROCEDURE MEDICATIONS Versed 1 mg IV Fentanyl 50 mcg IV Oxygen: 2 L/min via nasal cannula Ancef 2 Gm IV @ 05/28/2023 11:53:38 Signed By Demetri Arias MD On 05/28/2023 12:22:58 Demetri Arias MD
== END | disposition home or self-care (01) ==
PROVIDERS: PCP Family Medicine; Referring Provider Internal Medicine Cardiovascular Disease; Visit Provider Internal Medicine Cardiovascular Disease
DX: R55 Syncope and collapse (principal); I10 Essential (primary) hypertension; Z79.82 Long term (current) use of aspirin; Z79.899 Other long term (current) drug therapy; Z87.891 Personal history of nicotine dependence
CPT/HCPCS: 33285; 36415; 80048; 99152; 99153; J7040

== ENCOUNTER → 2023-06-03 | Outpatient (CLI) | payer BC, SELFPAY ==
[2023-06-03 16:44] LABS: Amphetamine Urine VISTA NEGATIVE (<1000 ng/mL); Barbiturate Urine VISTA NEGATIVE (< 200 ng/mL); Benzodiazepine Urine VISTA NEGATIVE (< 200 ng/mL); Cocaine Urine VISTA NEGATIVE (< 300 ng/mL); Ecstacy Urine VISTA NEGATIVE (< 500 ng/mL); Methadone Urine VISTA NEGATIVE (< 300 ng/mL); PCP Urine VISTA NEGATIVE (< 25 ng/mL); THC Urine VISTA NEGATIVE (< 50 ng/mL); Vista UDS pH Range 5
== END | disposition home or self-care (01) ==
LOC: LAB 15:53
PROVIDERS: PCP Family Medicine; Referring Provider Anesthesiology Pain Medicine; Visit Provider Anesthesiology Pain Medicine
DX: F11.20 Opioid dependence, uncomplicated (principal)
CPT/HCPCS: 80307

== ENCOUNTER → 2023-07-02 | Outpatient (CLI) | payer BC, SELFPAY ==
--- NOTE | 2023-07-02 15:52 | STRESSREP ---
Stress Test Report Pharmacologic myocardial perfusion stress test. 62-year-old man with a history of syncope Resting EKG demonstrates sinus rhythm with a rate of 70 bpm. Resting blood pressure is 132/82 mmHg. 0.4 mg of regadenoson was infused per usual protocol followed by rapid intravenous saline flush injection. Continuous EKG monitoring was performed. The maximum heart rate was 105 bpm which was 67% of max impacted heart rate the maximum workload was 1 metabolic equivalent. At rest there were no ST or T wave changes noted to suggest ischemia and at peak infusion nonspecific ST changes were noted which did not meet the criteria for ischemia. No clinical angina is noted. The final blood pressure was 138/80 mmHg. Myocardial perfusion protocol. 14.7 mCi of technetium 99m sestamibi was injected at rest. 0.4 mg of regadenoson was infused per usual protocol. At peak infusion 44.7 mCi of technetium 99m sestamibi was injected stress images were obtained stress and rest images were reconstructed and compared in the short axis vertical long and horizontal long axis. Gated images were also obtained. Perfusion SPECT analysis: Review of the stress images demonstrate normal uptake of tracer noted in all areas of the myocardium. The resting images similar demonstrated normal uptake of tracer noted in all areas of the myocardium. No areas of reversibility are noted to suggest ischemia and no previous infarct is noted. Gated SPECT analysis: The gated ejection fraction is 71%. Conclusion: Normal pharmacologic myocardial perfusion stress test. Preserved ejection fraction.
== END | disposition home or self-care (01) ==
PROVIDERS: PCP Family Medicine; Referring Provider Internal Medicine Cardiovascular Disease; Visit Provider Internal Medicine Cardiovascular Disease
DX: R55 Syncope and collapse (principal)
CPT/HCPCS: 78452; 93017; A9500; A4216; J2785

== ENCOUNTER 2023-12-22 16:11 | Observation (INO) | payer BC, SELFPAY ==
--- NOTE | 2023-12-21 11:55 | RAD_ITS ---
INDICATION: For new PPM implant EXAMINATION/TECHNIQUE: X-RAY - XR Chest 2 Views COMPARISON: No relevant prior comparison study available FINDINGS: LINES/DEVICES: [Cardiac pacer device overlying the left chest medially. LUNGS: No consolidation, edema or effusion. No pneumothorax. MEDIASTINUM AND CARDIOVASCULAR STRUCTURES: Cardiac silhouette not enlarged. Central airways and mediastinal contour are unremarkable. BONES AND SOFT TISSUES: No demonstrated acute osseous changes. RAD/Chest PA and Lateral IMPRESSION: No radiographic evidence of acute cardiopulmonary disease. Electronically Signed: Mohan Davis MD at 14:34 EST ,
[2023-12-21 12:07] LABS: Bacteria 0 SEEN /hpf (None Seen); Mucous, Urine 0 SEEN /hpf (<or=2+); Squamous Epithelial Cells - UA 0 SEEN /hpf (0-5); White Blood Cells 0 SEEN /hpf (0-5)
[2023-12-21 13:07] LABS: Color, Urine Yellow (Yellow); Glucose, Dipstick Normal (Normal); Ketone-Dipstick Negative (Negative); Leukocyte Esterase-Dipstick Negative /ul (Negative); Nitrite-Dipstick Negative (Negative); Occult Blood-Urine 25 /ul (Negative); Protein-Dipstick Negative (Negative); Urine Bilirubin Dipstick Negative (Negative); Urine Clarity Clear (Clear); Urine Urobilinogen Normal (Normal)
[2023-12-21 13:10] LABS: Hematocrit 48.9 % (40-54); Hemoglobin 15.8 g/dL (13.0-16.5); Mean Corp Hgb Conc 32.3 g/dL (32-36); Mean Corpuscular Hgb 30.2 pg (27.0-32.0); Mean Corpuscular Volume 93.5 fL (80-94); Mean Platelet Vol. 10.3 fl (6.2-12.0); Platelet Count 225 K/mm3 (150-450); RBC Distribution Width CV 14.6 % (11.6-14.6); RBC Distribution Width SD 50.4 fl (35.1-43.9); Red Blood Count 5.23 M/mm3 (4.6-6.2); White Blood Count 10.5 K/mm3 (4.4-11.0)
[2023-12-21 13:13] LABS: Prothrombin Time (Protime)PT. 12.8 SECONDS (11.7-14.9)
[2023-12-21 13:14] LABS: Red Blood Cells-Urine 0-5 SEEN /hpf (0-5)
[2023-12-21 13:52] VITALS: BMI 32.8
[2023-12-21 13:55] LABS: Anion Gap 3 (5-15); BUN 19 mg/dL (7-18); BUN/Creat Ratio 17.3 RATIO (10-20); Calcium,Total 10.1 mg/dL (8.5-10.1); Chloride 105 mmol/L (98-107); EST Glomerular Filtration Rate 71 mL/min (>60); Est Glom Filt Rate - Afr Amer 86 mL/min (>60); Estimated Creatinine Clearance 85.67 ml/min; Glucose 97 mg/dL (74-106); Potassium 3.9 mmol/L (3.5-5.1); Sodium Level 138 mmol/L (136-145)
[2023-12-22] VITALS (9 sets, daily range): BP systolic 134–151; BP diastolic 78–90; PULSE 80–87; RESP 14–19; TEMP 36.2–37.1; O2SAT 93–99; BMI 31.8
--- OUTSIDE RECORDS SUMMARY | 2023-12-22 11:13 | XMS RPT_ITS | CCD ---
Author Name Unknown Address [address] [place] [address] Organization [facility] Care Team Providers Care Corporate Giving Manager Name Role Phone RALF SOLIS Attending Unavailable AAYUSH CONDE Primary Care Unavailable AMAYA RILEY, AAYUSH Primary Care Physician [phone] Encounters Encounter Date Encounter Type Care Provider Facility Start: 01-07-2023 End: 01-07-2023 Patient encounter procedure RALF COLONNICOLAS [facility] Start: 01-06-2023 ambulatory RALF SOLIS Facility: B Payers Date Payer Category Payer Unknown [id number] 1960 Unknown [id number] Social History Date Type Detail Facility Tobacco smoking status No Smoking Status Entered [facility] Sex Assigned At Male [facility] Evaluation + Plan note Note Date & Type Note Facility Evaluation + Plan note No data available for this section [facility] Hospital Discharge instructions Note Date & Type Note Facility Hospital Discharge instructions No data available for this section [facility] Summary Purpose Family History No Family History Records Found Advance Directives No Advanced Directives Records Found Additional Source Comments (unrecognized sect ion and content) No Status Records Found INFORMATION SOURCE (unrecogn ized section and content) Care Team (unrecognized sect ion and content) Care Team Personnel Name: AAYUSH CONDE MD Member Role: Primary Care Physician Address: Address: [address] [place] [id number]- Care Team Related Persons Name: JUNIE CHOE FOR RECORDS PERTAINING TO PATIENTS WHO ARE OR HAVE BEEN ENROLLED IN A CHEMICAL DEPENDENCY/SUBSTANCEABUSE PROGRAM, SOME INFORMATION MAY BE OMITTED. This clinical summary was aggregated from multiple sources. Caution should be exercised in using it in the provision of clinical care. This summary normalizes information from multiple sources, and as a consequence, information in this document may materially change the coding, format and clinical context of patient data. In addition, data may be omitted in some cases. CLINICAL DECISIONS SHOULD BE BASED ON THE PRIMARY CLINICAL RECORDS. [employer] [facility]. provides no warranty or guarantee of the accuracy or completeness of information in this document.
--- NOTE | 2023-12-22 14:56 | CL.IE_ITS ---
Patient: JOHN CHOE Study Date: 12/22/2023 Performing: Demetri Arias MD : 1960 Age: 63 Gender: male PROCEDURES PERFORMED [id number])INITIAL PACER INSERT+DUAL LEADS INDICATIONS Atrioventricular (AV) block PROCEDURE DETAILS The patient was brought to the Catheterization Lab in the postabsorptive nonsedated state. Informed consent was obtained prior to the procedure. Local anesthetic was given subcutaneously to the left upper chest area with Lidocaine 2%. Access was achieved and a guidewire was advanced into the left subclavian vein. Incision was made to the left upper chest. PPM ventricular lead was inserted / positioned to right ventricular apex. PPM ventricular lead testing performed. PPM ventricular lead testing performed. The sheath was then removed. A peel-away sheath was inserted into the left subclavian vein. PPM atrial lead was inserted / positioned to the right atrial appendage. The sheath was then removed. PPM atrial lead testing performed. The Atrial lead sutured in place with 2-0 Silk. The Ventricular PM lead sutured in place with 2-0 Silk. PPM generator was attached to the lead(s) and inserted into the pocket. Device pocket was irrigated with antibiotic-ancef. Subcutaneous closure was completed with 3-0 Vicryl. Skin closure was completed with 4-0 Vicryl. The patient tolerated the procedure well. Estimated Blood Loss: 10 ml's IMPLANTED / EX-PLANTED DEVICES IMPLANTED DEVICE(S): PPM Generator - Associate Theatre Professor: PanTheryx, Model # L111 , Serial # [id number] Atrial lead - Associate Theatre Professor: PanTheryx, Model # 7841 , Serial # [id number] Ventricular lead - Associate Theatre Professor: PanTheryx, Model # 7842 , Serial # [id number] DEVICE PARAMETERS ATRIAL LEAD PARAMETERS: P wave- 1.5 (mV) Current- 1.9 (mA) threshold- 1.6 (V) impedence- 768 (OHMS) 10V test, no diaphragmatic capture VENTRICULAR LEAD PARAMETERS: R wave- 8.1 (mV) Current- 0.6 (mA) threshold- 0.8 (V) impedence- 1131 (OHMS) 10V test, no diaphragmatic capture DEVICE PARAMETERS: Mode- DDD Lower rate- 60 Upper rate- 130 CONCLUSIONS / RECOMMENDATIONS Device Conclusions: Successful implantation of a dual chamber pacemaker Device Recommendations: Follow up with Primary Care Physician PROCEDURE MEDICATIONS Versed 1 mg IV Fentanyl 50 mcg IV Versed 1 mg IV Versed 1 mg IV Fentanyl 25 mcg IV Versed 1 mg IV Oxygen: 2 L/min via nasal cannula Antibiotic given in appropriate timeframe. Ancef 2 Gm IV @ 12/22/2023 13:40:15 Signed By Demetri Arias MD On 12/22/2023 14:55:58 Demetri Arias MD
[2023-12-22] MEDS: Acetaminophen 325 MG Tablet PO (16:46)
--- OUTSIDE RECORDS SUMMARY | 2023-12-22 17:21 | XMS RPT_ITS | CCD ---
Author Name Unknown Address [address] [place] [address] Organization [facility] Care Team Providers Care Swatch Cutter Name Role Phone RALF SOLIS Attending Unavailable AAYUSH CONDE Primary Care Unavailable AMAYA RILEY, AAYUSH Primary Care Physician [phone] Encounters Encounter Date Encounter Type Care Provider Facility Start: 01-07-2023 End: 01-07-2023 Patient encounter procedure RALF COLONNICOLAS [facility] Start: 01-06-2023 ambulatory RALF SOLIS Facility: B Payers Date Payer Category Payer Unknown [id number] 1960 Unknown [id number] Social History Date Type Detail Facility Tobacco smoking status No Smoking Status Entered [facility] Sex Assigned At Male [facility] Evaluation + Plan note Note Date & Type Note Facility Evaluation + Plan note No data available for this section [facility] Hospital Discharge instructions Note Date & Type Note Facility Hospital Discharge instructions No data available for this section [facility] Summary Purpose Family History No Family History Records Found Advance Directives No Advanced Directives Records Found Additional Source Comments (unrecognized sect ion and content) No Status Records Found INFORMATION SOURCE (unrecogn ized section and content) Care Team (unrecognized sect ion and content) Care Team Personnel Name: AAYUSH CONDE MD Member Role: Primary Care Physician Address: Address: [address] [place] [phone] Care Team Related Persons Name: JUNIE CHOE [...] BE BASED ON THE PRIMARY CLINICAL RECORDS. [employer] [facility]. provides no warranty or guarantee of the accuracy or completeness of information in this document.
[2023-12-22] MEDS: Tamsulosin HCl 0.4 MG Capsule 0.400000000000000022 MG PO (19:38)
[2023-12-23 03:00] VITALS: BP 128/85; PULSE 78; RESP 16; TEMP 36.3; O2SAT 98
--- NOTE | 2023-12-23 05:55 | RAD_ITS ---
EXAM: XR CHEST, 3 VIEWS CLINICAL INDICATION: Post permanant ICD/Pacemaker -- inspiration/expiration. Arms Down. Wet read to MD TECHNIQUE: Frontal, lateral and and expiratory frontal view of the chest. COMPARISON: 12/21/2023. FINDINGS: LUNGS AND PLEURAL SPACES: Unremarkable. No consolidation or edema. No pneumothorax. No effusion. HEART: Unremarkable. Cardiac silhouette not enlarged. MEDIASTINUM: Central airways and mediastinal contour are unremarkable. BONES/JOINTS: Unremarkable. No acute fracture. SOFT TISSUES: Unremarkable. TUBES, LINES AND DEVICES: Pacemaker leads in good position. RAD/Chest 3 View IMPRESSION: Pacemaker leads in good position. No pneumothorax. Electronically Signed: Tom Sam MD at 4:52 EST ,
[2023-12-23 08:12] VITALS: BP 144/94; PULSE 84; RESP 16; TEMP 36.4; O2SAT 97
--- NOTE | 2023-12-23 08:16 | PCM.PN.CARD ---
Subjective Subjective Patient seen and evaluated. Appears to be doing well. Status post pacemaker placement yesterday. Objective Data Vital Signs: Vital Signs Temp Pulse Resp BP Pulse Ox O2 Del Method 97.6 F L 84 16 144/94 H 97 Room Air 12/23/23 08:12 12/23/23 08:12 12/23/23 08:12 12/23/23 08:12 12/23/23 08:12 12/23/23 08:12 Oxygen Delivery Method Room Air Weight: 242 lb 4.608 oz Body Mass Index (BMI) 31.8 Intake & Output: Intake and Output for Last 24 Hours 12/21/23 12/22/23 12/23/23 23:59 23:59 23:59 Intake Total 480 / 480 Output Total 300 / 300 400 / 400 Balance -300 / -60 80 / 80 Lab / Micro Data 12/21/23 12:06 12/21/23 12:06 Cardiology Labs/Tests Rhythm: EKG: ECHO: Stress Test: Cardiac Cath: PCI: CT Surgery: Holter monitor: EPS: PPM: CXR: Chest CT Scan: Radiography Diagnostic Testing: Radiology Impression Chest X-Ray 12/23/23 05:55 IMPRESSION: Pacemaker leads in good position. No pneumothorax. Electronically Signed: Tom Sam MD at 4:52 EST , Physical Exam Const alert, oriented x3 and no apparent distress General Appearance: cooperative HEENT hearing grossly normal bilaterally Head and Scalp: atraumatic Eyes EOMs intact bilaterally Neck General: normal visual inspection Chest inspection of chest normal and palpation of chest normal Resp normal respiratory effort Auscultation: clear to auscultation bilaterally Cardio regular rate, regular rhythm, S1 normal heart sound and S2 normal heart sound Jugular Venous Distention: JVD GI normal to inspection, nondistended, normoactive bowel sounds Extremity normal capillary refill and no pedal edema Peripheral Pulses: Yes pulses 2+ throughout and femoral pulses present Skin no rashes or lesions noted Neuro oriented x3 and CN's II-XII intact bilaterally Psych Appearance: grossly normal and appropriate Assessment & Plan Assessment/Plan (1) High degree atrioventricular block: PLAN: Patient is status post pacemaker implantation for high-grade AV block. Pacemaker was interrogated today and is noted to be functioning normally. Chest x-ray is without any pneumothorax. The patient will be discharged for outpatient follow-up in the device clinic. (2) Status post placement of implantable loop recorder: PLAN: Will arrange for explant of the above at a later date.
[2023-12-23] MEDS: hydroCHLOROthiazide 12.5mg 12.5 MG PO (08:18)
[2023-12-23] MEDS: Aspirin E.C. 81 MG Tablet PO (08:18)
[2023-12-23] MEDS: amLODIPine 5 MG Tablet PO (08:18)
[2023-12-23] MEDS: Pantoprazole Sodium 20 MG Tablet PO (08:18)
--- NOTE | 2023-12-23 08:18 | DCINST_ITS ---
Discharge Instructions Diet Discharge Diet: No restrictions (as you feel able. No excessive stretching. No lifting your arm over your head (keep elbow below shoulder level) until seen for your pacemaker check. Do not lift your elbow away from your side until you are seen for your first visit. Keep the arm sling on if it helps remind you not to lift your arm.) Activity Discharge Activity: May Not Drive May shower in (days): 2 Additional Activity Instructions:: May shower or bathe on [day 3]. Do not scrub the incision or soak in the tub. Just wash with soap and let the water run over the incision. Gently pat dry with towel. Medications: Take your pain medication as directed. Refer to your discharge instruction sheet for a list of medications you are to take. Dressing / Incision Call your doctor if your incision/area has: Continuous Slow Oozing, Sudden Increased Bleeding, Increased Pain/ Swelling, Increased Redness, Foul Smelling Discharge and Swelling at the incision site Call your doctor if you observe: Fever of 101 or Higher, Shortness of breath, Dizziness, Fainting spells, Swelling in the ankles, Chest pain, Prolonged hiccupping and Increased palpitations (irregular heartbeat) Suture Line Care: Avoid Pulling/Pushing and Avoid Pinching/Bending Additional Dressing/Incision Instructions:: When dressing is removed, wash and dry incision. Keep covered with a light bandage if it is rubbing against your clothing. Do not cover the incision with an airtight bandage. Change the bandage daily. Do not remove steri strips. The strips will fall off on their own. Follow Up Care Please Follow Up With: Demetri Arias MD When: Pacer follow-up on December 30 at 3 PM. Test Results: Test results from this visit will be discussed in further detail at your follow- up appointment, if applicable. Discharge Plan Admission Admit Date/Time: 12/22/23 16:11 Attending Provider: Demetri Arias Primary Care Provider: Arminda Montano Discharge Orders/Prescriptions Prescriptions: No Action aspirin [Adult Aspirin Regimen] 81 mg tablet,delayed release (DR/EC) 81 mg PO DAILY oxycodone-acetaminophen 5-325 mg tablet 1 tab PO BID Patient Comments: TAKE 1 TABLET BY MOUTH TWICE DAILY FOR 28 DAYS esomeprazole magnesium 20 mg capsule,delayed release(DR/EC) 20 mg PO DAILY cholecalciferol (vitamin D3) 25 mcg (1,000 unit) tablet 25 mcg PO DAILY One A Day Men Complete 240-25-300 mcg tablet 1 tab PO DAILY tamsulosin 0.4 MG capsule 0.4 mg PO QHS amlodipine 5 MG tablet 5 mg PO DAILY hydrochlorothiazide 12.5 mg tablet 12.5 mg PO DAILY oxycodone 5 mg capsule 5 mg PO BID PRN (Reason: Pain Score 1-10/10) Referrals / Follow Up: Arminda Montano MD [Primary Care Provider] - Disposition Disposition (needs filled in before D/C Order can be placed): Home, Self Care
--- NOTE | 2023-12-23 10:05 | CASEMGMT ---
Patient has order for discharge. RN CM in to discuss needs at discharge, family at bedside. Patient denies needs or help at discharge. Patient had no further questions or concerns.
--- NOTE | 2023-12-23 10:17 | PHA.DC.MR.R ---
Pharmacy [place] Med Reconciliation Pharmacy Service has performed discharge medication reconciliation for this patient. The patient's discharge medication list was reviewed for discrepancies and discrepancies were resolved. Medications at Discharge Home Medications tamsulosin 0.4 mg capsule 0.4 mg PO QHS 09/26/19 amlodipine 5 mg tablet 5 mg PO DAILY 06/16/20 hydrochlorothiazide 12.5 mg tablet 12.5 mg PO DAILY 06/16/20 aspirin 81 mg tablet,delayed release (Adult Aspirin Regimen) 81 mg PO DAILY 05/12/23 cholecalciferol (vitamin D3) 25 mcg (1,000 unit) tablet 25 mcg PO DAILY 12/21/23 esomeprazole magnesium 20 mg capsule,delayed release 20 mg PO DAILY 12/21/23 multivit,calcium,min-folic acid 240 mcg-D3 25 mcg-lycop 300 mcg tablet (One A Day Men Complete) 1 tab PO DAILY 12/21/23 oxycodone 5 mg capsule 5 mg PO BID PRN Pain Score 1-09/0712/21/23 oxycodone-acetaminophen 5 mg-325 mg tablet 1 tab PO BID 12/21/23
== END 2023-12-23 08:18 | disposition home or self-care (01) ==
LOC: CLSP 16:22 → PCU 16:22
PROVIDERS: Admitting Provider Internal Medicine Cardiovascular Disease; PCP Family Medicine; Referring Provider Internal Medicine Cardiovascular Disease; Visit Provider Internal Medicine Cardiovascular Disease
DX: Z45.018 Encounter for adjustment and management of other part of cardiac pacemaker (principal); I44.39 Other atrioventricular block; Z79.82 Long term (current) use of aspirin; Z79.899 Other long term (current) drug therapy; N40.1 Benign prostatic hyperplasia with lower urinary tract symptoms; R35.1 Nocturia; I10 Essential (primary) hypertension; Z87.891 Personal history of nicotine dependence; R06.09 Other forms of dyspnea; R55 Syncope and collapse; R00.2 Palpitations
CPT/HCPCS: 33208; 36415; 71046; 71047; 80048; 81001; 85027; 85610; 99152; 99153; 99221; J7040; J7050; C1894; G0378

== ENCOUNTER → 2024-02-22 | Outpatient (CLI) | payer BC, SELFPAY ==
[2024-02-22 17:33] LABS: Amphetamine Urine VISTA NEGATIVE (<1000 ng/mL); Barbiturate Urine VISTA NEGATIVE (< 200 ng/mL); Benzodiazepine Urine VISTA NEGATIVE (< 200 ng/mL); Cocaine Urine VISTA NEGATIVE (< 300 ng/mL); Ecstacy Urine VISTA NEGATIVE (< 500 ng/mL); Methadone Urine VISTA NEGATIVE (< 300 ng/mL); PCP Urine VISTA NEGATIVE (< 25 ng/mL); THC Urine VISTA NEGATIVE (< 50 ng/mL); Vista UDS pH Range 5
== END | disposition home or self-care (01) ==
LOC: LAB 17:04
PROVIDERS: PCP Family Medicine; Referring Provider Anesthesiology Pain Medicine; Visit Provider Anesthesiology Pain Medicine
DX: F11.20 Opioid dependence, uncomplicated (principal)
CPT/HCPCS: 80307

== ENCOUNTER 2024-10-02 14:29 | Emergency (ER) | payer BC, SELFPAY ==
[2024-10-02 14:31] VITALS: BP 164/96; PULSE 98; RESP 18; TEMP 36.5; O2SAT 100; BMI 31.6
--- NOTE | 2024-10-02 15:26 | CT_ITS ---
STUDY: CT ABDOMEN AND PELVIS WITHOUT CONTRAST REASON FOR EXAM: Male, 63 years old. Right flank pain RADIATION DOSAGE (If Supplied By Facility): CTDIvol = ( 19.50 ) mGy, DLP = ( 993.81 ) mGycm TECHNIQUE: Transaxial images were obtained from the dome of the diaphragm to the symphysis pubis without oral contrast, and without intravenous contrast. Sagittal and coronal images were reconstructed. Individualized dose optimization techniques were used for this CT. COMPARISON: September 15, 2019 FINDINGS: The visualized lung bases are unremarkable. The visualized portions of the heart are within normal limits. Normal liver. Normal gallbladder and extrahepatic biliary system. Normal spleen. Normal pancreas. Normal bilateral adrenal glands. Mild right hydroureteronephrosis with perinephric fat stranding secondary to tiny calculus in the distal ureter just proximal to the ureterovesical junction measuring approximately 4 mm in size. . A large simple cyst in the left kidney which will not require additional imaging. Normal visualized stomach. Normal small intestine. Diverticular changes of the colon without evidence for acute diverticulitis. Appendix not visualized status post appendectomy Atherosclerotic changes of the aorta without evidence for aneurysm. Normal inferior vena cava. Normal retroperitoneum. Normal urinary bladder. Small bilateral fat-containing inguinal hernias. Lumbar spine demonstrates degenerative changes Postsurgical change status post multilevel posterior fusion CT/Abdomen/Pelvis without Cont IMPRESSION: Mild right hydroureteronephrosis and perinephric stranding secondary to distal ureteral calculus Electronically Signed: Naman Felton MD at 16:19 EST ,
--- NOTE | 2024-10-02 15:28 | US_ITS ---
STUDY: SCROTUM ULTRASOUND REASON FOR EXAM: Male, 63 years old. Right testicular pain TECHNIQUE: Ultrasound evaluation of the scrotum was performed with color Doppler and static quintanilla-scale imaging. COMPARISON: None. FINDINGS: RIGHT TESTICLE INTRATESTICULAR: There is a normal size of the right testicle. The right testicle measures 5 x 3.6 x 3.3 cm. There is a homogenous echotexture. There is normal arterial and normal venous vascularity. There is no demonstrated right testicular mass or cyst. EXTRATESTICULAR: The epididymis is normal in size. The epididymis head measures 1.6 x 1.1 x 0.9 cm. There is normal vascularity of the epididymis. There is no demonstrated epididymal cystic structure. Moderate-sized hydrocele. There is no demonstrated varicocele. There is no demonstrated extratesticular mass or cyst. LEFT TESTICLE INTRATESTICULAR: There is a normal size of the left testicle. The left testicle measures 4.4 x 3.4 x 3.2 cm. There is a homogenous echotexture. There is normal arterial and normal venous vascularity. There is no demonstrated left testicular mass or cyst. EXTRATESTICULAR: The epididymis is normal in size. The epididymis head measures 1.4 x 1.2 x 1 cm. There is normal vascularity of the epididymis. There is no demonstrated epididymal cystic structure. Moderate-sized hydrocele. There is no demonstrated varicocele. There is no demonstrated extratesticular mass or cyst. US/Testicular with Arterial Flow IMPRESSION: Moderate-sized bilateral hydroceles. No evidence for testicular mass or torsion. Electronically Signed: Naman Felton MD at 17:10 [facility] Reading Location ID and State: [address] [place] [address] Tel , Service support ,
--- NOTE | 2024-10-02 15:38 | ED.VIS.FEGU ---
HPI HPI - Female History of Present Illness Chief Complaint: Flank Pain Narrative Narrative: Chief complaint and HPI: Right flank pain. 63-year-old male with history of HTN, BPH, remote history of kidney stone, appendectomy presents for evaluation of right flank pain. Patient states that he has been having intermittent right flank pain for the past month. He states that it significantly worsened today. He endorses decreased urinary flow in which he is on Flomax. He states he has a history of a kidney stone in the past in which it required stent and surgery. He states this feels slightly similar. He denies any fever, chills, shortness of breath, chest pain, vomiting, diarrhea, constipation, dysuria, hematuria. Does endorse some mild nausea secondary to the pain. Does endorse some right testicular pain. Denies any concern for STI. Denies any penile pain or discharge. Review of systems: See HPI Medications: As listed on the chart Allergies: As listed on the chart PFSH: Per chart Vital signs: As listed on the chart. Reviewed. Physical exam: Gen: A&O x3, NAD Head: Normocephalic, atraumatic Eyes: No sclera icterus, conjunctiva clear ENT: Moist mucous membranes Neck: Trachea midline, No JVD CV: RRR, no murmurs, no peripheral edema Resp: Lungs CTA BL, no w/r/c GI: Abd soft, non-distended, mild tenderness to palpation of the right flank, no r/r/g : No CVA tenderness. Circumcised penis. No penile tenderness or discharge. No penile or testicular swelling. Normal lie and position of the testicles. Testicular tenderness of the right testi-no masses or skin changes. Cremasteric reflexes intact and equal bilaterally. No rashes. No palpable hernias. Musc: Full ROM, no deformity Skin: Warm, dry Neuro: Alert, oriented, grossly intact, sensation intact Psych: Cooperative, appropriate mood and affect [facility] Medical History (Reviewed 03/13/24 @ 15:55 by Slick Almonte [employer], [employer]-[facility]) BPH associated with nocturia Deformity of right hand Essential hypertension Former smoker High degree atrioventricular block Hypertension Kidney stones Lumbar disc disease Lumbosacral radiculopathy at L4 Migraine Osteoporosis Palpitations Plantar fasciitis Polyp of colon Post-op pain Presence of cardiac pacemaker Spondylosis of lumbar spine with myelopathy Tachycardia Home Medications ?Medication ?Instructions ?Recorded ?Last Taken ?Type tamsulosin 0.4 mg capsule 0.4 mg PO QHS 09/26/19 Unknown History amlodipine 5 mg tablet 5 mg PO DAILY 06/16/20 05/28/23 History hydrochlorothiazide 12.5 mg tablet 12.5 mg PO DAILY 06/16/20 Unknown History aspirin 81 mg tablet,delayed 81 mg PO DAILY 05/12/23 05/28/23 History release (Adult Aspirin Regimen) cholecalciferol (vitamin D3) 25 25 mcg PO DAILY 12/21/23 Unknown History mcg (1,000 unit) tablet esomeprazole magnesium 20 mg 20 mg PO DAILY 12/21/23 Unknown History capsule,delayed release multivit,calcium,min-folic acid 1 tab PO DAILY 12/21/23 Unknown History 240 mcg-D3 25 mcg-lycop 300 mcg tablet (One A Day Men Complete) oxycodone 5 mg capsule 5 mg PO BID PRN Pain Score 1-09/0712/21/23 Unknown History sumatriptan succinate 50 mg tablet mg PO 03/13/24 Unknown History ondansetron 4 mg disintegrating 4 mg PO Q8H PRN PRN Nausea #10 tabs 10/02/24 Unknown Rx tablet oxycodone-acetaminophen 5 mg-325 1 tab PO Q6H PRN pain 3 days #12 10/02/24 Unknown Rx mg tablet (Percocet) tabs Allergy/AdvReac Type Severity Reaction Status Date / Time No Known Allergies Allergy Verified 03/13/24 15:28 Family History Father Diabetes Heart disease Mother Breast cancer Surgical History History of appendectomy Status post placement of implantable loop recorder Social History Smoking Status: Former smoker quit date: 04/28/17 pack-years: 30 Tobacco: How many years used: 30 how long ago did patient quit smokin YEARS second hand exposure: No quit status: quit date established alcohol intake: former substance use type: does not use caffeine: Yes EXAM Physical Exam Const Vital Signs: 10/02/24 14:31 10/02/24 17:05 Temperature 97.7 F L Temperature Source Oral Pulse Rate 98 80 Respiratory Rate 18 16 Blood Pressure 164/96 H 147/87 H Blood Pressure Mean 118 107 Pulse Ox 100 97 Oxygen Delivery Method Room Air MDM MDM MDM Narrative Medical decision making narrative: 63-year-old male presents for evaluation of right flank pain. Has a remote history of a kidney stone in the past. Had an appendectomy. See physical exam findings. Differential diagnosis includes but is not limited to urolithiasis, pyelonephritis, UTI, electrolyte abnormality, epididymitis suspect less likely testicular torsion. Zofran and Toradol ordered for symptoms. Basic labs ordered including CT abdomen and pelvis without contrast as well as testicular ultrasound. CBC with a leukocytosis of 14.9. BMP with renal insufficiency/KAROL with creatinine of 1.6. Last creatinine from November of this year was normal. Patient states that he has been eating and drinking well up until today. Fluids ordered. UA negative for UTI. Testicular ultrasound shows moderate-sized bilateral hydroceles but otherwise no infection, mass, torsion. CT abdomen pelvis shows mild right hydroureteronephrosis and perinephric stranding secondary to distal ureteral calculus. He has a 4 mm calculus just proximal to the UVJ. On reevaluation, patient states his pain is controlled. He was able to tolerate p.o. intake in the emergency department without any increase in pain or nausea and vomiting. Patient and are updated of all the results. Patient was given the plan of discharge home with pain and nausea medication and follow-up with urology vs. admission. Patient would like to discharge home. I do feel this is reasonable given that patient was able to tolerate p.o. intake and his pain is controlled. I did educate him that his kidney function was elevated and therefore he needs to make sure he is drinking plenty of fluids. He confirmed understanding. No clear etiology for patient's leukocytosis at this time likely reactive from his kidney stone. Patient does not follow with urology. Dr. Artis was contacted and patient was discussed. He agrees with discharge home as well despite his mildly elevated kidney function. Patient is already on Flomax will prescribe Zofran and Percocet for pain. Patient was given a work note. Return precautions were given. He confirmed understanding of plan. Impression: 1. Mild right hydroureteronephrosis and perinephritic stranding secondary to a distal ureteral calculi 2. Renal insufficiency/KAROL likely secondary to decreased p.o. intake 3. Bilateral hydroceles Lab Data Labs: Laboratory Results - last 24 hr 10/02/24 10/02/24 15:45 15:59 WBC 14.9 H RBC 5.00 Hgb 15.4 Hct 45.4 MCV 90.8 MCH 30.8 MCHC 33.9 RDW Std Deviation 47.8 H RDW Coeff of Demetrio 14.3 Plt Count 208 MPV 10.0 Immature Gran % (Auto) 0.500 Neut % (Auto) 75.8 H Lymph % (Auto) 14.9 L Randolph % (Auto) 8.1 Eos % (Auto) 0.5 Baso % (Auto) 0.2 Absolute Neuts (auto) 11.3 H Absolute Lymphs (auto) 2.21 Nucleated RBC % 0 Sodium 142 Potassium 3.8 Chloride 108 H Carbon Dioxide 27.0 Anion Gap 6 BUN 19 H Creatinine 1.60 H Estim Creat Clear Calc 59.58 Est GFR (MDRD) Af Amer 56 L Est GFR (MDRD) Non-Af 46 L BUN/Creatinine Ratio 11.9 Glucose 89 Calcium 9.0 Urine Color Yellow Urine Clarity Clear Urine pH 6.5 Ur Specific Spring 1.010 Urine Protein 15 H Urine Glucose (UA) Normal Urine Ketones Negative Urine Occult Blood 10 H Urine Nitrite Negative Urine Bilirubin Negative Urine Urobilinogen Normal Ur Leukocyte Esterase Negative Urine RBC 0-5 SEEN Urine WBC 0 SEEN Ur Squamous Epith Cells 0-5 SEEN Urine Bacteria 0 SEEN Urine Mucus 0 SEEN Radiography Diagnostic Testing: Clinical Impression(s) from Imaging Studies Abdomen/Pelvis CT 10/02/24 15:26 IMPRESSION: Mild right hydroureteronephrosis and perinephric stranding secondary to distal ureteral calculus Electronically Signed: Naman Felton MD at 16:19 EST Reading Location ID and State: [facility] / [place] Tel [phone], Service support , Testicular Ultrasound 10/02/24 15:28 IMPRESSION: Moderate-sized bilateral hydroceles. No evidence for testicular mass or torsion. Electronically Signed: Naman Felton MD at 17:10 EST , Discharge Plan Triage Chief Complaint: Flank Pain ED Provider: Torey Quintana Dx/Rx/DC Orders Clinical Impression: Urolithiasis Instructions: Understanding Kidney Stones, Identifying Kidney Stones, Treating Kidney Stones: Medicines, ED Kidney Stone with Pain Prescriptions: New oxycodone-acetaminophen [Percocet] 5-325 mg tablet 1 tab PO Q6H PRN (Reason: pain) 3 Days Qty: 12 0RF ondansetron 4 mg tablet,disintegrating 4 mg PO Q8H PRN PRN (Reason: Nausea) Qty: 10 0RF No Action aspirin [Adult Aspirin Regimen] 81 mg tablet,delayed release (DR/EC) 81 mg PO DAILY esomeprazole magnesium 20 mg capsule,delayed release(DR/EC) 20 mg PO DAILY cholecalciferol (vitamin D3) 25 mcg (1,000 unit) tablet 25 mcg PO DAILY One A Day Men Complete 240-25-300 mcg tablet 1 tab PO DAILY sumatriptan succinate 50 mg tablet PO tamsulosin 0.4 MG capsule 0.4 mg PO QHS amlodipine 5 MG tablet 5 mg PO DAILY hydrochlorothiazide 12.5 mg tablet 12.5 mg PO DAILY oxycodone 5 mg capsule 5 mg PO BID PRN (Reason: Pain Score 1-10/10) Stand Alone Forms: ED Work / School Excuse Primary Care Provider: Arminda Montano Referrals: Arminda Montano MD [Primary Care Provider] - 3-5 Days Liu Artis MD [Med Staff - Active Staff] - 2 Days Activity Restrictions/Additional Instructions: Do not drive or operate heavy machinery while taking pain medication. Return back to the ED if you develop fever, worsening abdominal pain, inability to eat or drink, inability to urinate, or other worsening symptoms. Make sure you take your Flomax. Call for urology follow-up as soon as possible. Print Language: Telugu Disposition Disposition: Home, Self Care
[2024-10-02] MEDS: Ondansetron 4 MG/2 ML Vial IV (15:45)
[2024-10-02] MEDS: Ketorolac 30 MG/ML Syringe 15 MG IV (15:45)
[2024-10-02 15:54] LABS: Absolute Lymphocyte Count 2.21 X10^3/uL (0.83-4.51); Absolute Neutrophil Count 11.3 X10^3/uL (2.0-7.7); Basophil# 0.03 X10^3/uL; Basophil% 0.2 % (0-1); Eosinophil# 0.08 X10^3/uL; Eosinophils% 0.5 % (0-5); Hematocrit 45.4 % (40-54); Hemoglobin 15.4 g/dL (13.0-16.5); Lymphocyte # 2.21 X10^3/ul (0.83-4.51); Lymphocyte % 14.9 % (19-41); Mean Corp Hgb Conc 33.9 g/dL (32-36); Mean Corpuscular Hgb 30.8 pg (27.0-32.0); Mean Corpuscular Volume 90.8 fL (80-94); Monocyte% 8.1 % (0-10); NRBC Flagged by Analyzer 0 % (0-5); Neutrophil # 11.27 X10^3/uL (2.7-7.7); Neutrophil % 75.8 % (47-70); Platelet Count 208 K/mm3 (150-450); RBC Distribution Width CV 14.3 % (11.6-14.6); RBC Distribution Width SD 47.8 fl (35.1-43.9); White Blood Count 14.9 K/mm3 (4.4-11.0)
[2024-10-02 16:05] LABS: Anion Gap 6 (5-15); BUN 19 mg/dL (7-18); BUN/Creat Ratio 11.9 RATIO (10-20); Chloride 108 mmol/L (98-107); EST Glomerular Filtration Rate 46 mL/min (>60); Est Glom Filt Rate - Afr Amer 56 mL/min (>60); Estimated Creatinine Clearance 59.58 ml/min; Glucose 89 mg/dL (74-106); Potassium 3.8 mmol/L (3.5-5.1); Sodium Level 142 mmol/L (136-145)
[2024-10-02 16:11] LABS: Bacteria 0 SEEN /hpf (None Seen); Mucous, Urine 0 SEEN /hpf (<or=2+); White Blood Cells 0 SEEN /hpf (0-5)
[2024-10-02 16:15] LABS: Color, Urine Yellow (Yellow); Glucose, Dipstick Normal (Normal); Ketone-Dipstick Negative (Negative); Leukocyte Esterase-Dipstick Negative /ul (Negative); Nitrite-Dipstick Negative (Negative); Occult Blood-Urine 10 /ul (Negative); Protein-Dipstick 15 mg/dl (Negative); Urine Bilirubin Dipstick Negative (Negative); Urine Clarity Clear (Clear); Urine Urobilinogen Normal (Normal); Urine pH 6.5 (5.0 - 8.0)
[2024-10-02 16:27] LABS: Squamous Epithelial Cells - UA 0-5 SEEN /hpf (0-5)
[2024-10-02 16:28] LABS: Red Blood Cells-Urine 0-5 SEEN /hpf (0-5)
[2024-10-02] MEDS: 0.9% Normal Saline (1000mL) 1,000 ML 999 ML IV (17:04)
[2024-10-02 17:05] VITALS: BP 147/87; PULSE 80; RESP 16; O2SAT 97
[2024-10-02] MEDS: Morphine 4 MG/ML Syringe IV (17:17)
== END 2024-10-02 18:25 | disposition home or self-care (01) ==
PROVIDERS: Emergency Provider Surgery; PCP Family Medicine; Referring Provider Surgery; Visit Provider Surgery
DX: N13.2 Hydronephrosis with renal and ureteral calculous obstruction (principal); N17.9 Acute kidney failure, unspecified; N40.1 Benign prostatic hyperplasia with lower urinary tract symptoms; R35.1 Nocturia; N43.3 Hydrocele, unspecified; N50.811 Right testicular pain; I10 Essential (primary) hypertension; Z79.82 Long term (current) use of aspirin; Z79.899 Other long term (current) drug therapy; Z87.891 Personal history of nicotine dependence
CPT/HCPCS: 74176; 76870; 80048; 81001; 85025; 93976; 96361; 96374; 96375; 99283; J7030; A4216; J2405

== ENCOUNTER → 2024-10-10 | Outpatient (CLI) | payer BC, SELFPAY ==
[2024-10-10 16:49] LABS: PSA,Total - Annual Screen 3.77 ng/mL (0.00-4.00)
== END | disposition home or self-care (01) ==
LOC: LAB 15:36
PROVIDERS: PCP Family Medicine; Referring Provider Nurse Practitioner; Visit Provider Nurse Practitioner
DX: Z12.5 Encounter for screening for malignant neoplasm of prostate (principal)
CPT/HCPCS: 36415; 84153; G0103

== ENCOUNTER → 2025-03-13 | Outpatient (CLI) | payer BC, SELFPAY ==
--- NOTE | 2025-03-13 16:11 | RAD_ITS ---
PROCEDURE: CHEST PA AND LATERAL 03/13/2025 REASON FOR EXAM: SOB TECHNIQUE: Frontal and lateral views of the chest. Frontal and 2 lateral views to include the entire chest, 3 total images COMPARISON: None available FINDINGS: The lungs are clear. Pulmonary vascularity appears within limits. No pleural effusion. leader writer pacemaker and loop recorder. The cardiac and mediastinal contours appear within limits. Partially imaged anterior cervical disc fusion and lumbar hardware noted. RAD/Chest PA and Lateral IMPRESSION: No evidence of acute disease. Reading Location: [id number]
[2025-03-13 16:24] LABS: Absolute Lymphocyte Count 2.91 X10^3/uL (0.83-4.51); Absolute Neutrophil Count 4.9 X10^3/uL (2.0-7.7); Basophil# 0.04 X10^3/uL; Basophil% 0.5 % (0-1); Eosinophil# 0.23 X10^3/uL; Eosinophils% 2.6 % (0-5); Hematocrit 45.7 % (40-54); Hemoglobin 15.6 g/dL (13.0-16.5); Lymphocyte # 2.91 X10^3/ul (0.83-4.51); Mean Corp Hgb Conc 34.1 g/dL (32-36); Mean Corpuscular Hgb 30.3 pg (27.0-32.0); Mean Corpuscular Volume 88.7 fL (80-94); Mean Platelet Vol. 9.6 fl (6.2-12.0); Monocyte# 0.76 X10^3/uL; Monocyte% 8.6 % (0-10); NRBC Flagged by Analyzer 0 % (0-5); Neutrophil # 4.85 X10^3/uL (2.7-7.7); Platelet Count 228 K/mm3 (150-450); RBC Distribution Width CV 14.3 % (11.6-14.6); Red Blood Count 5.15 M/mm3 (4.6-6.2); White Blood Count 8.8 K/mm3 (4.4-11.0)
[2025-03-13 17:22] LABS: Anion Gap 12 (5-15); BUN 15 mg/dL (4-19); Calcium,Total 9.6 mg/dL (7.6-11.0); Carbon Dioxide 23.8 mmol/L (21.0-32.0); Chloride 102 mmol/L (98-108); Creatinine, Serum 1.26 mg/dL (0.70-1.20); EST Glomerular Filtration Rate 63 (>60); Glucose 94 mg/dL (70-99); Sodium Level 138 mmol/L (133-145)
== END | disposition home or self-care (01) ==
PROVIDERS: PCP Family Medicine; Referring Provider Internal Medicine Cardiovascular Disease; Visit Provider Internal Medicine Cardiovascular Disease
DX: R06.02 Shortness of breath (principal); R06.09 Other forms of dyspnea
CPT/HCPCS: 36415; 71046; 80048; 85025

== ENCOUNTER 2025-03-28 10:17 | Day surgery (SDC) | payer BC, SELFPAY ==
[2025-03-27 07:55] VITALS: BMI 33.5
--- NOTE | 2025-03-28 12:31 | CL.IE_ITS ---
Patient: JOHN CHOE Study Date: 03/28/2025 Performing: Demetri Arias MD : 1960 Age: 64 Gender: male PROCEDURES PERFORMED DC01-([id number])LHC/COR/LV LP02-([id number])REMOVAL OF LOOP RECORDER INDICATIONS end of life loop remover PROCEDURE DETAILS The patient was brought to the Catheterization Lab in the postabsorptive nonsedated state. Informed consent was obtained prior to the procedure. . The patient tolerated the procedure well. Estimated Blood Loss: 4 ml's IMPLANTED / EX-PLANTED DEVICES DEVICE PARAMETERS CONCLUSIONS / RECOMMENDATIONS Device Conclusions: Successful removal of a patient activated loop recorder. Device Recommendations: Follow up with Primary Care Physician PROCEDURE MEDICATIONS Versed 1 mg IV Fentanyl 50 mcg IV Baby Aspirin (81mg) 1 Tabs PO 03/28/2025 10:48:44 Ancef 2 Gm IV @ 03/28/2025 12:06:49 Heparin given IA 03/28/2025 12:06:58 Verapamil 2.5mg, Ntg 200mcgs, 2000 units of Heparin given IA 03/28/2025 12:06:58 Signed By Demetri Arias MD On 03/28/2025 12:31:00 Demetri Arias MD
--- NOTE | 2025-03-28 12:42 | CL.D_ITS ---
Patient Name: JOHN CHOE Study Date: 03/28/2025 Performing: Demetri Arias MD Ht: 73 inches 185.42 cm : 1960 Wt: 253.99 lbs 115.21 kg Age: 64 Gender: male BSA: 2.38 PROCEDURE(S) PERFORMED DC01-([id number])LHC/COR/LV LP02-([id number])REMOVAL OF LOOP RECORDER CLINICAL PROFILE AND INDICATIONS Indications: Other Heart Failure: None Stress/Imaging Stress/Image Study Performed: No CAD Presentations: Other: SOB CONCLUSIONS Normal coronary arteries Normal LV size, wall motion,and systolic function RECOMMENDATIONS Medical Therapy DESCRIPTION OF PROCEDURE The patient arrived to the procedure lab. The risks and benefits of the procedure as well as a full description of our services here and current unavailability of surgical backup were fully explained to the patient and/or their significant other prior to the catheterization. The Timeout was completed, verifying the correct patient and procedure. The patient's procedural site was prepped and draped in the usual fashion. Local anesthetic was given subcutaneously to right radial region with Lidocaine 2%. Using a modified Seldinger technique, arterial access was obtained via the right radial artery, a 6Fr sheath was inserted. Left Coronary Artery selective angiography was performed in multiple views using a 5 Fr. 4.0 Marshall catheter. Right Coronary Artery selective angiography was then performed in multiple views using a 5 Fr. 4.0 Marshall catheter. Left Ventriculography was performed in LE projection using a 5 Fr. Pigtail catheter. LV to AO pullback pressures were then recorded.The arterial sheath was pulled and a TR Band was applied for hemostasis CORONARY ANGIOGRAPHY DOMINANCE: Right Dominant LEFT HEART ASSESSMENT Left Ventricular Ejection Fraction: by LV Gram 65 % Normal LV wall motion Normal Left Ventricular systolic function Normal Left Ventricular systolic function LEFT MAIN: Angiographically normal LEFT ANTERIOR DESCENDING ARTERY: Angiographically normal CIRCUMFLEX ARTERY: Angiographically normal RIGHT CORONARY ARTERY: Angiographically normal COMPLICATIONS No Complications PROCEDURE MEDICATIONS Versed 1 mg IV Fentanyl 50 mcg IV Baby Aspirin (81mg) 1 Tabs PO 03/28/2025 10:48:44 Ancef 2 Gm IV @ 03/28/2025 12:06:49 Heparin given IA 03/28/2025 12:06:58 Verapamil 2.5mg, Ntg 200mcgs, 2000 units of Heparin given IA 03/28/2025 12:06:58 SUMMARY OF HEMODYNAMIC DATA Time AIR REST ECG 10:38:46 AO 124/85 (100) SA 12:08:49 LV 106/5, 14 12:14:45 LV 104/8, 17 12:14:53 LV 109/7, 27 12:15:41 LV 101/8, 18 12:15:48 LVp 107/7, 18 12:15:59 AOp 112/68 (86) 12:16:04 Signed By Demetri Arias MD On 03/28/2025 12:41:37 Demetri Arias MD
== END 2025-03-28 14:00 | disposition home or self-care (01) ==
PROVIDERS: PCP Family Medicine; Referring Provider Internal Medicine Cardiovascular Disease; Visit Provider Internal Medicine Cardiovascular Disease
DX: Z45.09 Encounter for adjustment and management of other cardiac device (principal); I44.39 Other atrioventricular block; R06.09 Other forms of dyspnea; R06.02 Shortness of breath; I10 Essential (primary) hypertension; Z87.891 Personal history of nicotine dependence
CPT/HCPCS: 33286; 93458; 99152; 99153; Q9967; A4216; C1769; C1894

== ENCOUNTER 2025-04-03 09:13 | Outpatient (CLI) | payer BC, SELFPAY ==
[2025-04-03 12:29] LABS: Amphetamine Urine NEGATIVE (<1000 ng/mL); Barbiturate Urine NEGATIVE (< 200 ng/mL); Benzodiazepine Urine NEGATIVE (< 200 ng/mL); Buprenorphine Urine NEGATIVE (< 200 ng/mL); Cocaine Urine NEGATIVE (< 300 ng/mL); Fentanyl, Urine NEGATIVE; Methadone Urine NEGATIVE (< 300 ng/mL); Opiates Urine NEGATIVE (< 300 ng/mL); Oxycodone, Urine PRESUMPTIVE POSITIVE (< 100 ng/mL); PCP Urine NEGATIVE (< 25 ng/mL); THC Urine NEGATIVE (< 50 ng/mL)
== END 2025-04-03 23:59 | disposition home or self-care (01) ==
LOC: LAB 09:14
PROVIDERS: PCP Family Medicine; Referring Provider Anesthesiology Pain Medicine; Visit Provider Anesthesiology Pain Medicine
DX: F11.20 Opioid dependence, uncomplicated (principal)
CPT/HCPCS: 80307

== ENCOUNTER → 2025-04-09 | Outpatient (CLI) | payer BC, SELFPAY ==
--- NOTE | 2025-04-09 17:17 | CT_ITS ---
PROCEDURE: CT ABD/PELVIS W/WO CONTRAST 04/09/2025 REASON FOR EXAM: HEMATURIA TECHNIQUE: Abdomen and pelvis CT with intravenous contrast. Coronal and Sagittal reconstruction series were provided. PATIENT PREPARATION: Per protocol ORAL CONTRAST TYPE: None. CONTRAST: Isovue 370 VOLUME: 100 mL One or more dose reduction techniques were used (e.g., Automated exposure control, adjustment of the mA and/or kV according to patient size, use of iterative reconstruction technique. RADIATION DOSE SUMMARY: CTDlvol: 28.9 mGy DLP: 5132.73 mGycm COMPARISON: Comparison is made with prior study dated October 02, 2024. FINDINGS: Lung bases: Unremarkable a dual-chamber pacemaker is seen. Liver: Diffuse fatty infiltration. Gallbladder: Unremarkable Spleen: Normal size. Pancreas: Normal size without evidence of mass surrounding inflammation or ductal dilation. Adrenals: Unremarkable Kidneys: 5 cm x 4.4 cm cyst in the anterior aspect of the left kidney. Bladder: Unremarkable. Bowel: Colonic diverticulosis without diverticulitis. Appendix: Unremarkable Lymph nodes: Unremarkable. Vasculature: Mild diffuse atherosclerotic calcifications are noted. Small bilateral inguinal hernias containing fat. Bones: Degenerative changes of the spine. CT/CT Abd/Pelvis W/WO Contrast IMPRESSION: Fatty infiltration of the liver. 5 cm 4.4 cm cyst in the anterior aspect of the left kidney. Small bilateral inguinal hernias containing fat. OVERALL FINAL ASSESSMENT: . LI-RADS is not meant to be used in patients <18 years or patients with cirrhosi s due to congenital hepatic fibrosis or due to vascular disorders, because these patients have a lower chance of developing HC C. Reading Location: [facility]
== END | disposition home or self-care (01) ==
LOC: CT 17:10
PROVIDERS: PCP Family Medicine; Referring Provider Urology; Visit Provider Urology
DX: N40.1 Benign prostatic hyperplasia with lower urinary tract symptoms (principal); R31.21 Asymptomatic microscopic hematuria
CPT/HCPCS: 74178; Q9967; A4216

== ENCOUNTER 2025-04-20 10:51 | Day surgery (SDC) | payer BC, SELFPAY ==
--- NOTE | 2025-04-19 13:29 | PAT.ANESEVAL ---
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 When Was Last Pacemaker Check QUESTION #4 FULL TEXT: You/Your Family Experience fever (hyperthermia) with Anesthesia Last Oral Intake Last Oral intake: Last Oral Intake NPO since Meds taken in AM with sips of water? Meds patient instructed to take am of surgery PONV PONV - parole supervisor: PONV - parole supervisor Female No 04/19/25 13:06 HX of Motion Sickness No 04/19/25 13:06 HX of N/V After Surgery No 04/19/25 13:06 Non-Smoker Yes 04/19/25 13:06 Duration of Surgery greater Yes 04/19/25 13:06 than 60 minutes Number of Risk Factors 2 04/19/25 13:06 PONV Score Moderate Risk 04/19/25 13:06 Height & Weight Height & Weight: Anesthesia: Height & Weight Height 6 ft 1 in 04/19/25 11:30 Weight: 113.398 kg 04/19/25 11:30 Respiratory Assessment Respiratory Assessment - parole supervisor: Respiratory Tract Infection Hx - parole supervisor Hx Respiratory Tract Infection No 04/19/25 13:06 STOP Sleep Apnea STOP Sleep Apnea - parole supervisor: STOP Sleep Apnea - parole supervisor Hx Hypertension Yes: PER PT, CONTROLLED ON 04/19/25 13:06 MEDS Hx Sleep Apnea No 04/19/25 13:06 CPAP BIPAP Do you snore loudly (louder No 04/19/25 13:06 than talking or can be heard Do you often feel tired/ No 04/19/25 13:06 fatigued/ sleepy during daytime? Has anyone observed you stop No 04/19/25 13:06 breathing during sleep? STOP Results Negative 04/19/25 13:06 QUESTION #5 FULL TEXT : Do you snore loudly (louder than talking or can be heard through closed doors)? 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 Specify any problems Hx of Preganancy in last 3 N/A 04/19/25 13:06 Months Nurse Filling Out Transfusion SUZI 04/19/25 13:06 & Questions: Date: 04/19/25 04/19/25 13:06 Time: 13:09 04/19/25 13:06 Patient unable to answer at this time (ie. confused, unrespo /Reproduction History /Reproductive History - parole supervisor: /Reproductive Hx- parole supervisor Hx Now Gestational Age (in weeks): EDC: Hx Hx Para Hx Section SAB Active Medications Active Medications: Current Medications Generic Name Dose Route Start Last Admin Trade Name Freq PRN Reason Stop Dose Admin Cefazolin Sodium 2 gm/ Sodium 110 mls @ 150 mls/hr 04/20/25 12:55 Chloride IV 04/20/25 13:38 INTRAOP ONE ON LICENSE OF [facility] Medical History (Updated 04/19/25 @ 13:16 by Zulema Rodriguez) Wears glasses Wears dentures Gastric reflux History of edema History of Holter monitoring History of echocardiogram History of stress test Cardiology follow-up encounter History of pacemaker Presence of cardiac pacemaker (12/22/23) High degree atrioventricular block Palpitations Tachycardia Essential hypertension Post-op pain Lumbosacral radiculopathy at L4 Spondylosis of lumbar spine with myelopathy Former smoker Kidney stones Osteoporosis BPH associated with nocturia Plantar fasciitis Polyp of colon Deformity of right hand Migraine Lumbar disc disease Hypertension Home Medications ?Medication ?Instructions ?Recorded ?Last Taken ?Type tamsulosin 0.4 mg capsule 0.4 mg PO QHS 09/26/19 Unknown History amlodipine 5 mg tablet 5 mg PO DAILY 06/16/20 05/28/23 History hydrochlorothiazide 12.5 mg tablet 12.5 mg PO DAILY 06/16/20 Unknown History aspirin 81 mg tablet,delayed 81 mg PO DAILY 05/12/23 05/28/23 History release (Adult Aspirin Regimen) esomeprazole magnesium 20 mg 20 mg PO DAILY 12/21/23 Unknown History capsule,delayed release multivit,calcium,min-folic acid 1 tab PO DAILY 12/21/23 Unknown History 240 mcg-D3 25 mcg-lycop 300 mcg tablet (One A Day Men Complete) oxycodone 5 mg capsule 5 mg PO BID PRN Pain Score 1-09/0712/21/23 Unknown History sumatriptan succinate 50 mg tablet 50 mg PO Q2H PRN migraine headache 03/13/25 Unknown History Allergy/AdvReac Type Severity Reaction Status Date / Time No Known Allergies Allergy Verified 04/19/25 13:01 Family History Father Diabetes Heart disease Mother Breast cancer Surgical History (Updated 04/19/25 @ 13:16 by Zulema Rodriguez) History of cardiac catheterization History of colonoscopy History of neck surgery History of back surgery Status post placement of implantable loop recorder History of appendectomy Social History Smoking Status: Former smoker quit date: 04/28/17 pack-years: 30 Tobacco: How many years used: 30 how long ago did patient quit smokin YEARS second hand exposure: No quit status: quit date established alcohol intake: former substance use type: does not use caffeine: Yes Audit: Pertinent Findings Pertinent Findings EKG Perinent findings: 03/15/2025. Sinus rhythm. Consider old anterior infarct. Has pacemaker placed. Heart catheterization pertinent findings: 03/28/2025. Normal coronary arteries. Normal left ventricular size wall motion and function. Consult pertinent findings: Cardiology 03/13/2025. Dyspnea on exertion. Recommend definitive test with cardiac catheterization. Hypertension. Controlled on medications. High degree AV block. Permanent pacemaker placement. Is in place. Recommendation Anesthesia Recommendation Anesthesia recommendation: OPTIMIZED for anesthesia
[2025-04-20] VITALS (8 sets, daily range): BP systolic 126–137; BP diastolic 79–89; PULSE 77–92; RESP 16–19; TEMP 36.2–37.2; O2SAT 96–98; BMI 33.7
[2025-04-20] MEDS: Lactated Ringers 1,000 ML 15 ML IV (11:22)
--- NOTE | 2025-04-20 11:35 | PCM.PRE.AN2 ---
ASA Classification* ASA Classification ASA Classification: 3 Assessment & Plan Anesthesia* Anesthesia Assessment Anesthesia Assessment: Discussed sedation and/or anesthesia options, risks, benefits, and alternatives with patient/parents/legal guardian/POA. Questions invited. The patient/parents/legal guardian/POA seems to understand and agrees to proceed with anesthesia plan. Reviewed the physical assessment, medical history, allergy history and patient home medications list prior to surgery/procedure/anesthetic and documented any changes. Performed airway and anesthesia risk assessments. Anesthesia Type Anesthesia Type: General Anesthesia Focused Assessment* Temperature: 98.9 F Pulse Rate: 92 Blood Pressure: 128/86 Respiratory Rate: 19 Pulse Ox: 96 Airway Assessment Mouth opens: >3 cm Mallampati Score: II Focused Labs Anesthesia Preop lab: CBC WBC 8.8 K/mm3 (4.4-11.0) 03/13/25 16:05 03/13/25 RBC 5.15 M/mm3 (4.6-6.2) 03/13/25 16:05 03/13/25 Hgb 15.6 g/dL (13.0-16.5) 03/13/25 16:05 03/13/25 Hct 45.7 % (40-54) 03/13/25 16:05 03/13/25 Plt Count 228 K/mm3 (150-450) 03/13/25 16:05 03/13/25 CHEMISTRY Potassium 4.0 mmol/L (3.3-5.1) 03/13/25 16:05 03/13/25 Sodium 138 mmol/L (133-145) 03/13/25 16:05 03/13/25 BUN 15 mg/dL (4-19) 03/13/25 16:05 03/13/25 Creatinine 1.26 mg/dL (0.70-1.20) H 03/13/25 16:05 03/13/25 Glucose 94 mg/dL (70-99) 03/13/25 16:05 03/13/25 TSH 0.90 uIU/mL (0.358-3.74) 03/05/23 08:11 03/05/23 COAG PT 12.8 SECONDS (11.7-14.9) 12/21/23 12:06 01/23/24 Pre-Assessment Diagnosis/Proposed Procedure Planned Operative Procedure(s): (R) Cysto,Ureteroscopy,Retro,Laser,Stent Anesthesia History 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 When Was Last Pacemaker Check QUESTION #4 FULL TEXT: You/Your Family Experience fever (hyperthermia) with Anesthesia Last Oral Intake Last Oral intake: Last Oral Intake NPO since 00:00 04/20/25 11:19 Meds taken in AM with sips of No 04/20/25 11:19 water? 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 - cloud automation tester Female No 04/19/25 13:06 HX of Motion Sickness No 04/19/25 13:06 HX of N/V After Surgery No 04/19/25 13:06 Non-Smoker Yes 04/19/25 13:06 Duration of Surgery greater Yes 04/19/25 13:06 than 60 minutes Number of Risk Factors 2 04/19/25 13:06 PONV Score Moderate Risk 04/19/25 13:06 Height & Weight Height & Weight: Anesthesia: Height & Weight Height 6 ft 1 in 04/20/25 11:19 Weight: 115.8 kg 04/20/25 11:19 Body Mass Index (BMI) 33.7 04/20/25 11:19 Respiratory Assessment Respiratory Assessment - cloud automation tester: Respiratory Tract Infection Hx - cloud automation tester Hx Respiratory Tract Infection No 04/19/25 13:06 STOP Sleep Apnea STOP Sleep Apnea - cloud automation tester: STOP Sleep Apnea - cloud automation tester Hx Hypertension Yes: PER PT, CONTROLLED ON 04/19/25 13:06 MEDS Hx Sleep Apnea No 04/19/25 13:06 CPAP BIPAP Do you snore loudly (louder No 04/19/25 13:06 than talking or can be heard Do you often feel tired/ No 04/19/25 13:06 fatigued/ sleepy during daytime? Has anyone observed you stop No 04/19/25 13:06 breathing during sleep? STOP Results Negative 04/19/25 13:06 QUESTION #5 FULL TEXT : Do you snore loudly (louder than talking or can be heard through closed doors)? 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 Specify any problems Hx of Preganancy in last 3 N/A 04/19/25 13:06 Months Nurse Filling Out Transfusion MGRIFFITH 04/19/25 13:06 & Questions: Date: 04/19/25 04/19/25 13:06 Time: 13:09 04/19/25 13:06 Patient unable to answer at this time (ie. confused, unrespo /Reproduction History /Reproductive History - cloud automation tester: /Reproductive Hx- cloud automation tester Hx Now Gestational Age (in weeks): EDC: Hx Hx Para Hx Section SAB Active Medications Active Medications: Current Medications Generic Name Dose Route Start Last Admin Trade Name Freq PRN Reason Stop Dose Admin Cefazolin Sodium 2 gm/ Sodium 110 mls @ 150 mls/hr 04/20/25 12:55 Chloride IV 04/20/25 13:38 INTRAOP ONE Lactated Ringer's 1,000 mls @ 15 mls/hr 04/20/25 11:00 04/20/25 11:22 IV 15 mls/hr .Q48H VIDYA Administration PFSH Medical History Wears glasses Wears dentures Gastric reflux History of edema History of Holter monitoring History of echocardiogram History of stress test Cardiology follow-up encounter History of pacemaker Presence of cardiac pacemaker (12/22/23) High degree atrioventricular block Palpitations Tachycardia Essential hypertension Post-op pain Lumbosacral radiculopathy at L4 Spondylosis of lumbar spine with myelopathy Former smoker Kidney stones Osteoporosis BPH associated with nocturia Plantar fasciitis Polyp of colon Deformity of right hand Migraine Lumbar disc disease Hypertension Home Medications ?Medication ?Instructions ?Recorded ?Last Taken ?Type tamsulosin 0.4 mg capsule 0.4 mg PO QHS 09/26/19 04/19/25 History amlodipine 5 mg tablet 5 mg PO DAILY 06/16/20 04/20/25 History hydrochlorothiazide 12.5 mg tablet 12.5 mg PO DAILY 06/16/20 04/19/25 History aspirin 81 mg tablet,delayed 81 mg PO DAILY 05/12/23 04/19/25 History release (Adult Aspirin Regimen) esomeprazole magnesium 20 mg 20 mg PO DAILY 12/21/23 04/20/25 History capsule,delayed release multivit,calcium,min-folic acid 1 tab PO DAILY 12/21/23 04/19/25 History 240 mcg-D3 25 mcg-lycop 300 mcg tablet (One A Day Men Complete) oxycodone 5 mg capsule 5 mg PO BID PRN Pain Score 1-09/0712/21/23 Unknown History sumatriptan succinate 50 mg tablet 50 mg PO Q2H PRN migraine headache 03/13/25 Unknown History Allergy/AdvReac Type Severity Reaction Status Date / Time No Known Allergies Allergy Verified 04/19/25 13:01 Family History Father Diabetes Heart disease Mother Breast cancer Surgical History History of cardiac catheterization History of colonoscopy History of neck surgery History of back surgery Status post placement of implantable loop recorder History of appendectomy Social History Smoking Status: Former smoker quit date: 04/28/17 pack-years: 30 Tobacco: How many years used: 30 how long ago did patient quit smokin YEARS second hand exposure: No quit status: quit date established alcohol intake: former substance use type: does not use caffeine: Yes Review of Systems (Anesthesia) ROS Narrative System reviewed and no additional complaints, except as documented.
[2025-04-20] MEDS: Cefazolin 2 GM in 0.9% Normal Saline (100mL Bag) 100 ML IV (12:48)
--- NOTE | 2025-04-20 12:50 | DCINST_ITS ---
Discharge Instructions Diet Discharge Diet: No restrictions DC O2, CPAP, BIPAP needs Home O2 Discharge instructions: No Dressing / Incision Discharge Activity: Return to Normal Activity and May Not Drive (while taking narcotic pain medications.) Dressing / Incision Call your doctor if you observe: Fever of 101 or Higher Follow Up Care Please Follow Up With: Liu Solomon MD When: Call [phone] for an appointment Test Results: Test results from this visit will be discussed in further detail at your follow- up appointment, if applicable. Discharge Plan Admission Primary Reason for Your Visit: laser stone Attending Provider: Liu Solomon Primary Care Provider: Arminda Montano Instructions Print Language: Telugu Discharge Orders/Prescriptions Prescriptions: New ibuprofen 600 mg tablet 600 mg PO Q6H PRN (Reason: pain) Qty: 20 0RF acetaminophen 500 mg capsule 500 mg PO Q6H PRN (Reason: pain) Qty: 20 0RF phenazopyridine [Pyridium] 100 mg tablet 100 mg PO TID PRN (Reason: pain) Qty: 14 0RF Continued aspirin [Adult Aspirin Regimen] 81 mg tablet,delayed release (DR/EC) 81 mg PO DAILY Patient Comments: LAST DOSE IS 04/19/25. DR SOLOMON AWARE AND WILL CONTINUE CURRENT PLAN OF SURGERY 04/20/25 esomeprazole magnesium 20 mg capsule,delayed release(DR/EC) 20 mg PO DAILY One A Day Men Complete 240-25-300 mcg tablet 1 tab PO DAILY sumatriptan succinate 50 mg tablet 50 mg PO Q2H PRN (Reason: migraine headache) tamsulosin 0.4 MG capsule 0.4 mg PO QHS amlodipine 5 MG tablet 5 mg PO DAILY hydrochlorothiazide 12.5 mg tablet 12.5 mg PO DAILY oxycodone 5 mg capsule 5 mg PO BID PRN (Reason: Pain Score 1-10/10) Referrals / Follow Up: Arminda Montano MD [Primary Care Provider] - Liu Solomon MD [Med Staff - Active Staff] - Disposition Disposition (needs filled in before D/C Order can be placed): Home, Self Care
--- NOTE | 2025-04-20 12:50 | PCM.HP.STD ---
HPI - General General Date of Service: 04/20/25 Chief Complaint: Distal right ureteral calculus HPI Narrative JOHN CHOE, is a 64 M who presents to laser and removed with stone in the distal right ureter you have been having pelvic pain and pelvic pressure off-and-on CAT scan shows a stone in the distal ureter [facility] Medical History Wears glasses Wears dentures Gastric reflux History of edema History of Holter monitoring History of echocardiogram History of stress test Cardiology follow-up encounter History of pacemaker Presence of cardiac pacemaker (12/22/23) High degree atrioventricular block Palpitations Tachycardia Essential hypertension Post-op pain Lumbosacral radiculopathy at L4 Spondylosis of lumbar spine with myelopathy Former smoker Kidney stones Osteoporosis BPH associated with nocturia Plantar fasciitis Polyp of colon Deformity of right hand Migraine Lumbar disc disease Hypertension Home Medications ?Medication ?Instructions ?Recorded ?Last Taken ?Type tamsulosin 0.4 mg capsule 0.4 mg PO QHS 09/26/19 04/19/25 History amlodipine 5 mg tablet 5 mg PO DAILY 06/16/20 04/20/25 History hydrochlorothiazide 12.5 mg tablet 12.5 mg PO DAILY 06/16/20 04/19/25 History aspirin 81 mg tablet,delayed 81 mg PO DAILY 05/12/23 04/19/25 History release (Adult Aspirin Regimen) esomeprazole magnesium 20 mg 20 mg PO DAILY 12/21/23 04/20/25 History capsule,delayed release multivit,calcium,min-folic acid 1 tab PO DAILY 12/21/23 04/19/25 History 240 mcg-D3 25 mcg-lycop 300 mcg tablet (One A Day Men Complete) oxycodone 5 mg capsule 5 mg PO BID PRN Pain Score 1-09/0712/21/23 Unknown History sumatriptan succinate 50 mg tablet 50 mg PO Q2H PRN migraine headache 03/13/25 Unknown History acetaminophen 500 mg capsule 500 mg PO Q6H PRN pain #20 caps 04/20/25 Unknown Rx ibuprofen 600 mg tablet 600 mg PO Q6H PRN pain #20 tabs 04/20/25 Unknown Rx phenazopyridine 100 mg tablet 100 mg PO TID PRN pain #14 tabs 04/20/25 Unknown Rx (Pyridium) Allergy/AdvReac Type Severity Reaction Status Date / Time No Known Allergies Allergy Verified 04/19/25 13:01 Family History Father Diabetes Heart disease Mother Breast cancer Surgical History History of cardiac catheterization History of colonoscopy History of neck surgery History of back surgery Status post placement of implantable loop recorder History of appendectomy Social History Smoking Status: Former smoker quit date: 04/28/17 pack-years: 30 Tobacco: How many years used: 30 how long ago did patient quit smokin YEARS second hand exposure: No quit status: quit date established alcohol intake: former substance use type: does not use caffeine: Yes Vital Signs Vital Signs Vital Signs: 04/20/25 11:19 04/20/25 11:19 04/20/25 11:36 Temperature 98.9 F 98.9 F Temperature Source Temporal Pulse Rate 92 92 Respiratory Rate 19 H 19 H Respiratory Pattern Normal Blood Pressure 128/86 H 128/86 H Blood Pressure Mean 100 Blood Pressure Source Monitor Blood Pressure Position Semi-Fowlers Blood Pressure Location Right Arm Pulse Ox 96 96 Oxygen Delivery Method Room Air Weight Weight: 115.8 kg Body Mass Index (BMI) 33.7
--- NOTE | 2025-04-20 13:30 | PCM.OPRPT ---
Operative Report (Standard) Operative Information Date of Procedure: 04/20/25 Pre-Operative Diagnosis: Right ureteral calculus Post-Operative Diagnosis: The same Surgery/Procedure Performed: Cystoscopy, balloon dilation of the right ureter, right ureteroscopy laser lithotripsy of stone basket of fragments, no stent kalsominer: No Type of Anesthesia: General RN Documented Start/Stop Times: Operation Date: 04/20/25 12:55 Case Time Into Pre-Op 04/20/25 10:59 Out of Pre-Op 04/20/25 12:42 Anesthesia Start 04/20/25 12:48 Into Room 04/20/25 12:48 Procedure Start Time: 12:48 Procedure Stop Time: 13:30 Select all DRAINS/GRAFTS/IMPLANTS that apply: None Estimated Blood Loss: None Specimen collected: No Description of surgery: Patient was taken back to the operative room after smooth duction of an esthesia he was placed in dorsolithotomy position went into the bladder with a flexible ureteroscope was able to identify the right ureteral orifice cannulated with a wire try to go over the wire with the flexible scope I would not go into the ureter so I backed out left the wire in place went in with the cystoscope with a second wire next of the first wire and then advanced a 12 [place] balloon dilator we then balloon dilated the distal right ureter then was able to go back in with a flexible ureteroscope over the working wire and was able to get into the ureter I then encountered the stone in the distal ureter I used a 200 ?m laser fiber loop thulium laser lasered the stone into tiny pieces I then used a basket and extracted all the pieces out of the ureter ureter was intact no trauma or perforation to the ureter so all the stone fragments were removed did not leave the stent in remove the cystoscope and the ureteroscope patient anesthetic was reversed plan to see him back in about a month for checkup. Surgical Findings: Stone in distal right ureter removed Complications Complications: No Admit VTE Documentation VTE Present on Admission: No VTE Mechan Device Prophylaxis: SCD's VTE Pharm Prophylaxis ordered?: No
--- NOTE | 2025-04-20 13:41 | PCM.POST.ANE ---
Anesthesia: Postop Eval I Current Vital Signs Temperature: 97.2 F Pulse Rate: 78 Blood Pressure: 137/89 Respiratory Rate: 16 Pulse Ox: 98 Oxygen Delivery Method: Room Air Assessment Airway patent: Yes Spontaneous unlabored respirations: Yes Mental status: Awake and Calm nausea: No Vomiting: No Anesthesia Complication: No Fluid Hydration Crystalloid volume administer (ml): 600 Total IV fluid infused: 600 Progress Note Anesthesia document: Postop Eval 1 completed: Yes
--- NOTE | 2025-04-20 13:47 | POSTOPAN2_ITS ---
Anesthesia Postop Eval I Sum Postop Eval Completion status Anesthesia document: Postop Eval 1 completed: Yes Anesthesia Postop Eval I Summary Anesthesia Postop Eval I Summary: Anesthesia Postop Eval I: Assessment Summary Airway patent Yes 04/20/25 13:42 [email or web address] Spontaneous unlabored Yes 04/20/25 13:42 STAGE [email or web address] respirations Mental status Awake,Calm 04/20/25 13:42 STAGE [email or web address] nausea No 04/20/25 13:42 STAGE [email or web address] Vomiting No 04/20/25 13:42 STAGE [email or web address] Anesthesia Postop Eval I: Fluid Summary Crystalloid volume administer 600 04/20/25 13:42 STAGE [email or web address] (ml) Colloids volume administered ( ml) Blood Product volume administered (ml) Total IV fluid infused 600 04/20/25 13:42 STAGE [email or web address] Anesthesia Postop Eval I: Summary Notes Anesthesia Complication No 04/20/25 13:42 STAGE [email or web address] Anesthesia Complication Comment: Post-operative progress note Anesthesia: Postop Eval II Evaluation Mental status: Awake Pain Level: 0 nausea: No Vomiting: No
--- NOTE | 2025-04-20 13:47 | PCM.POSTANE2 ---
Anesthesia Postop Eval I Sum Postop Eval Completion status Anesthesia document: Postop Eval 1 completed: Yes Anesthesia Postop Eval I Summary Anesthesia Postop Eval I Summary: Anesthesia Postop Eval I: Assessment Summary Airway patent Yes 04/20/25 13:42 [email or web address] [email or web address] Spontaneous unlabored Yes 04/20/25 13:42 COLLATOR [email or web address] respirations Mental status Awake,Calm 04/20/25 13:42 [email or web address] [email or web address] nausea No 04/20/25 13:42 COLLATOR [email or web address] Vomiting No 04/20/25 13:42 [email or web address] [email or web address] Anesthesia Postop Eval I: Fluid Summary Crystalloid volume administer 600 04/20/25 13:42 [email or web address] [email or web address] (ml) Colloids volume administered ( ml) Blood Product volume administered (ml) Total IV fluid infused 600 04/20/25 13:42 [email or web address] [email or web address] Anesthesia Postop Eval I: Summary Notes Anesthesia Complication No 04/20/25 13:42 COLLATOR [email or web address] Anesthesia Complication Comment: Post-operative progress note Anesthesia: Postop Eval II Evaluation Mental status: Awake Pain Level: 0 nausea: No Vomiting: No
[2025-04-20] MEDS: Ketorolac 15 MG/ML Vial IV (13:49)
== END 2025-04-20 14:38 | disposition home or self-care (01) ==
LOC: SDC 10:53 → AC 10:55
PROVIDERS: PCP Family Medicine; Referring Provider Urology; Visit Provider Urology
PROC: 0TJ98ZZ Inspection of Ureter, Via Natural or Artificial Opening Endoscopic (ICD-10-PCS; CPT 52352; principal; 2025-04-20 12:45)
DX: N20.1 Calculus of ureter (principal); Z87.891 Personal history of nicotine dependence; I10 Essential (primary) hypertension; Z79.899 Other long term (current) drug therapy; Z79.82 Long term (current) use of aspirin; K21.9 Gastro-esophageal reflux disease without esophagitis
CPT/HCPCS: 52353; 00918; C1769; J2405

== ENCOUNTER 2025-09-24 09:47 | Emergency (ER) | payer BC, SELFPAY ==
[2025-09-24] VITALS (12 sets, daily range): BP systolic 136–167; BP diastolic 81–102; PULSE 92–120; RESP 15–29; TEMP 36.4–36.8; O2SAT 91–96; BMI 33.3
--- NOTE | 2025-09-24 09:58 | EX.ED.DYSGE1 ---
HPI History of Present Illness Chief Complaint: Shortness of Breath Narrative Narrative: 64-year-old male presents emergency department for complaint of shortness of breath. Patient states since last week he has been having shortness of breath with exertion and wheezing and cough. Patient states he does have a history of smoking within the past 15 years unsure of any diagnosis of COPD or emphysema. Denying any fevers, chills, chest pain, leg swelling, history of blood clots. [facility] Medical History Wears glasses Wears dentures Gastric reflux History of edema History of Holter monitoring History of echocardiogram History of stress test Cardiology follow-up encounter History of pacemaker Presence of cardiac pacemaker (12/22/23) High degree atrioventricular block Palpitations Tachycardia Essential hypertension Post-op pain Lumbosacral radiculopathy at L4 Spondylosis of lumbar spine with myelopathy Former smoker Kidney stones Osteoporosis BPH associated with nocturia Plantar fasciitis Polyp of colon Deformity of right hand Migraine Lumbar disc disease Hypertension Home Medications ?Medication ?Instructions ?Recorded ?Last Taken ?Type amlodipine 5 mg tablet 5 mg PO DAILY HTN 06/16/20 09/24/25 History hydrochlorothiazide 12.5 mg tablet 12.5 mg PO DAILY HTN 06/16/20 09/24/25 History aspirin 81 mg tablet,delayed 81 mg PO DAILY HEART HEALTH 05/12/23 09/24/25 History release (Adult Aspirin Regimen) esomeprazole magnesium 20 mg 20 mg PO DAILY GERD 12/21/23 09/24/25 History capsule,delayed release multivit,calcium,min-folic acid 1 tab PO DAILY SUPPLEMENT 12/21/23 09/24/25 History 240 mcg-D3 25 mcg-lycop 300 mcg tablet (One A Day Men Complete) acetaminophen 500 mg capsule 500 mg PO Q6H PRN pain #20 caps 04/20/25 Unknown Rx albuterol sulfate 90 mcg/actuation 2 puff inhalation Q4H PRN PRN 09/24/25 Unknown Rx aerosol inhaler (Ventolin HFA) Wheezing #1 vial dextromethorphan-guaifenesin 30 1 tab PO Q12H PRN cough 09/24/25 09/23/25 History mg-600 mg tablet extended [id number] hr (Mucinex DM) ipratropium 0.5 mg-albuterol 3 mg 3 ml inhalation Q4H PRN shortness 09/24/25 Unknown Rx (2.5 mg base)/3 mL nebulization of breath #180 mL soln nebulizer and compressor (Home #1 ea 09/24/25 Unknown Rx Nebulizer Plus Sidestream) oxycodone-acetaminophen 5 mg-325 1 tab PO BID PRN pain 09/24/25 09/24/25 History mg tablet prednisone 20 mg tablet 40 mg (2 x 20 mg) PO DAILY 5 days 09/24/25 Unknown Rx #10 tabs Allergy/AdvReac Type Severity Reaction Status Date / Time No Known Allergies Allergy Verified 09/24/25 09:47 Family History Father Diabetes Heart disease Mother Breast cancer Surgical History History of cardiac catheterization History of colonoscopy History of neck surgery History of back surgery Status post placement of implantable loop recorder History of appendectomy Social History Smoking Status: Former smoker quit date: 04/28/17 pack-years: 30 Tobacco: How many years used: 30 how long ago did patient quit smokin YEARS second hand exposure: No quit status: quit date established alcohol intake: former substance use type: does not use caffeine: Yes EXAM Physical Exam Const Vital Signs: 09/24/25 09:47 09/24/25 09:47 09/24/25 09:50 Temperature 98.2 F 98.2 F Temperature Source Oral Oral Pulse Rate 114 H 114 H Respiratory Rate 24 H 29 H Respiratory Effort Short of Breath Respiratory Depth Normal Respiratory Pattern Tachypnea Blood Pressure 167/102 H 167/102 H Blood Pressure Mean 123 123 Pulse Ox 95 94 Oxygen Delivery Method Room Air Room Air Room Air 09/24/25 10:31 09/24/25 11:00 09/24/25 11:10 Temperature 97.6 F L Temperature Source Axillary Pulse Rate 96 92 Respiratory Rate 18 15 Respiratory Effort Respiratory Depth Respiratory Pattern Normal Blood Pressure 139/86 H Blood Pressure Mean 103 Pulse Ox 91 96 Oxygen Delivery Method Room Air Room Air 09/24/25 11:39 09/24/25 13:31 09/24/25 14:00 Temperature Temperature Source Pulse Rate 96 97 101 H Respiratory Rate 18 16 20 H Respiratory Effort Respiratory Depth Respiratory Pattern Blood Pressure 166/87 H 136/81 H 157/88 H Blood Pressure Mean 113 99 111 Pulse Ox 96 95 95 Oxygen Delivery Method Room Air Room Air Room Air 09/24/25 14:55 09/24/25 15:00 09/24/25 15:30 Temperature 98 F Temperature Source Pulse Rate 99 118 H 120 H Respiratory Rate 16 20 H Respiratory Effort Respiratory Depth Respiratory Pattern Blood Pressure 150/84 H 154/91 H Blood Pressure Mean 106 112 Pulse Ox 93 93 Oxygen Delivery Method Room Air HEENT Reports moist mucous membranes Chest Wall inspection of chest normal and palpation of chest normal Resp normal respiratory effort Auscultation: wheezes and diminished lung sounds Cardio regular rhythm and no murmurs Rate: tachycardic GI Palpation: soft; Negative for tender or guarding Extremity General Extremety ED: Negative for edema or tenderness General Extremity: Negative for edema MDM MDM MDM Narrative Medical decision making narrative: 64-year-old male presents emergency department for complaint of shortness of breath. Patient states since last week he has been having shortness of breath with exertion and wheezing and cough. Patient states he does have a history of smoking within the past 15 years unsure of any diagnosis of COPD or emphysema. Denying any fevers, chills, chest pain, leg swelling, history of blood clots. On my physical exam patient saturating 93 to 94% on room air. Wheezing throughout lungs with decreased breath sounds at lung bases. Patient was given DuoNebs x 3, Solu-Medrol and reevaluated. On reevaluation patient had remained tachycardic, no evidence of leg edema or history of heart failure. Low suspicion for fluid overload as chest x-ray showed no evidence of effusion or cardiomegaly. No signs of superimposed pneumonia. Low suspicion for pulmonary embolus given no history of blood clot and tachycardia likely induced from albuterol treatments with no evidence of infection. Ambulatory pulse ox performed and patient remained 94% on room air. Will give home nebulizer and DuoNebs for discharge and steroids. Offered admission and patient feeling okay to be discharged at this time. Return precautions given to return if any worsening symptoms. Lab Data Attestation: I reviewed the patient's lab results. Lab results narrative: Labs reviewed by myself showing no large leukocytosis with some concentrated hemoglobin. Troponin below normal limits downtrending from 0 to 2 hours. Slight hypokalemia Labs: Laboratory Results - last 24 hr 09/24/25 09/24/25 09:50 11:40 WBC 10.6 RBC 5.66 Hgb 17.2 H Hct 49.8 MCV 88.0 MCH 30.4 MCHC 34.5 RDW Std Deviation 43.8 RDW Coeff of Demetrio 13.7 Plt Count 262 MPV 10.3 Immature Gran % (Auto) 0.700 Neut % (Auto) 62.3 Lymph % (Auto) 28.7 [place] % (Auto) 6.0 Eos % (Auto) 1.9 Baso % (Auto) 0.4 Absolute Neuts (auto) 6.6 Absolute Lymphs (auto) 3.03 Nucleated RBC % 0 Sodium 141 Potassium 3.2 L Chloride 104 Carbon Dioxide 23.8 Anion Gap 14 BUN 23 H Creatinine 1.09 Estim Creat Clear Calc 88.46 Est GFR (MDRD) Non-Af 75 BUN/Creatinine Ratio 20.8 H Glucose 145 H Calcium 9.3 Troponin T High Sens 18 Troponin T Hi Sens 2 Hr 15 Radiography Chest X-Ray - ED: 1 View Diagnostic Testing: Clinical Impression(s) from Imaging Studies Chest X-Ray 09/24/25 10:30 IMPRESSION: Hyperinflation. No acute abnormality is seen. Reading Location: [facility] Chest x-ray showing no evidence of acute cardiopulmonary process EKG Initial EKG: Attestation: I personally reviewed and interpreted this EKG as follows: Comments: EKG dependent frequently self exams tachycardia, ventricular rate 105, AR 186, QTc 49. Normal axis. EKG largely unchanged from previous performed on 07/22/[address] No [address] elevation depression or T wave inversions consistent with ischemia Prior EKG tracings: available for review Discharge Plan Triage Chief Complaint: Shortness of Breath ED Provider: Mai Cisneros Dx/Rx/DC Orders Clinical Impression: COPD exacerbation Prescriptions: New (DME) nebulizer and compressor [Home Nebulizer Plus Sidestream] Device See Rx Instructions .Route Qty: 1 0RF Rx Instructions: As directed ipratropium-albuterol 0.5 mg-3 mg(2.5 mg base)/3 mL solution for nebulization 3 ml inhalation Q4H PRN (Reason: shortness of breath) Qty: 180 0RF Rx Instructions: until breathing returns to target peak flow/parameters prednisone 20 mg tablet 40 mg PO DAILY 5 Days Qty: 10 0RF albuterol sulfate [Ventolin HFA] 90 mcg/actuation HFA aerosol inhaler 2 puff inhalation Q4H PRN PRN (Reason: Wheezing) Qty: 1 0RF No Action aspirin [Adult Aspirin Regimen] 81 mg tablet,delayed release (DR/EC) 81 mg PO DAILY esomeprazole magnesium 20 mg capsule,delayed release(DR/EC) 20 mg PO DAILY One A Day Men Complete 240-25-300 mcg tablet 1 tab PO DAILY amlodipine 5 MG tablet 5 mg PO DAILY hydrochlorothiazide 12.5 mg tablet 12.5 mg PO DAILY acetaminophen 500 mg capsule 500 mg PO Q6H PRN (Reason: pain) Qty: 20 0RF oxycodone-acetaminophen 5-325 mg tablet 1 tab PO BID PRN (Reason: pain) Mucinex DM 30-600 mg tablet extended release 12 hr 1 tab PO Q12H PRN (Reason: cough) Patient Comments: HAS BEEN TAKING FOR THE PAST WEEK Primary Care Provider: Arminda Montano Referrals: Arminda Montano MD [Primary Care Provider, Family Practice] Activity Restrictions/Additional Instructions: Please follow-up with primary care provider within 1 week regarding your visit today. Return to the emergency room if develop any worsening symptoms, chest pain, shortness of breath, fevers. Print Language: Estonian Disposition Disposition: Home, Self Care Discharge Date/Time: 09/24/25 15:32
--- NOTE | 2025-09-24 10:30 | RAD_ITS ---
PROCEDURE: RAD/Chest PA and Lateral
[2025-09-24 10:31] LABS: Hematocrit 49.8 % (40-54); Hemoglobin 17.2 g/dL (13.0-16.5); Immature Granulocytes Count 0.070 X10^3/uL (0.0-0.0); Mean Corp Hgb Conc 34.5 g/dL (32-36); Mean Corpuscular Volume 88.0 fL (80-94); Mean Platelet Vol. 10.3 fl (6.2-12.0); NRBC Flagged by Analyzer 0 % (0-5); Platelet Count 262 K/mm3 (150-450); RBC Distribution Width CV 13.7 % (11.6-14.6); RBC Distribution Width SD 43.8 fl (35.1-43.9); Red Blood Count 5.66 M/mm3 (4.6-6.2); White Blood Count 10.6 K/mm3 (4.4-11.0)
[2025-09-24 10:49] LABS: Anion Gap 14 (5-15); BUN 23 mg/dL (4-19); BUN/Creat Ratio 20.8 RATIO (10-20); Calcium,Total 9.3 mg/dL (7.6-11.0); Carbon Dioxide 23.8 mmol/L (21.0-32.0); Chloride 104 mmol/L (98-108); Estimated Creatinine Clearance 88.46 ml/min (50-250); Glucose 145 mg/dL (70-99); Potassium 3.2 mmol/L (3.3-5.1); Troponin T High Sensitivity 18 ng/L (<=22)
[2025-09-24 12:01] LABS: Troponin T High Sens 2 HR 15 ng/L (<=22)
== END 2025-09-24 15:32 | disposition home or self-care (01) ==
PROVIDERS: Emergency Provider Student in an Organized Health Care Education/Training Program; PCP Family Medicine; Visit Provider Student in an Organized Health Care Education/Training Program
DX: J44.1 Chronic obstructive pulmonary disease with (acute) exacerbation (principal); I10 Essential (primary) hypertension; E87.6 Hypokalemia; Z79.82 Long term (current) use of aspirin; Z79.85 Long-term (current) use of injectable non-insulin antidiabetic drugs; Z87.891 Personal history of nicotine dependence; Z95.0 Presence of cardiac pacemaker
CPT/HCPCS: 71046; 80048; 84484; 85025; 93005; 94640; 96374; 99284; A4216

== ENCOUNTER → 2025-10-16 | Outpatient (CLI) | payer BC, SELFPAY ==
[2025-10-16 14:02] VITALS: PULSE 100; PULSE 102; PULSE 104; PULSE 108; PULSE 110; PULSE 112; PULSE 113; O2SAT 93; O2SAT 95; O2SAT 96; O2SAT 97
--- NOTE | 2025-10-19 11:37 | PCM.PSN.6M ---
PSN 6 Minute Walk Test 6 Minute Walk Test 6 Minute Walk Test: 6 Minute Walk Test PSN:6-Minute Walk Test Start: 10/16/25 14:02 Freq: Status: Active Protocol: [id number].[id number] Document 10/16/25 14:02 [facility] (Rec: 10/16/25 14:07 [facility] [id number]) 6 Minute Walk Test Date Performed 10/16/25 Time Performed 13:45 Height 6 ft 1 in Weight: 245 lb Weight in Pounds [address]: Arminda Montano Assistive device None used: Pre-test Oxygen Delivery Room Air Method Pulse Ox (%) 96 Pulse Rate (60-100 100 beats/min) Dyspnea Cherie Scale ( 0 0-10) Exertion Cherie Scale 6 (6-20) 1st minute Oxygen Delivery Room Air Method Pulse Ox (%) 97 Pulse Rate (60-100 104 H beats/min) Dyspnea Cherie Scale ( 2 0-10) Number of Rests 0 Taken 2nd minute Oxygen Delivery Room Air Method Pulse Ox (%) 96 Pulse Rate (60-100 110 H beats/min) Dyspnea Cherie Scale ( 2 0-10) Number of Rests 0 Taken 3rd minute Oxygen Delivery Room Air Method Pulse Ox (%) 95 Pulse Rate (60-100 113 H beats/min) Dyspnea Cherie Scale ( 2 0-10) Number of Rests 0 Taken 4th minute Oxygen Delivery Room Air Method Pulse Ox (%) 93 Pulse Rate (60-100 112 H beats/min) Dyspnea Cherie Scale ( 2 0-10) Number of Rests 0 Taken 5th minute Oxygen Delivery Room Air Method Pulse Ox (%) 96 Pulse Rate (60-100 108 H beats/min) Dyspnea Cherie Scale ( 3 0-10) Number of Rests 0 Taken Reported Symptoms Increased Work of Breathing 6th minute Oxygen Delivery Room Air Method Pulse Ox (%) 97 Pulse Rate (60-100 112 H beats/min) Dyspnea Cherie Scale ( 3 0-10) Number of Rests 0 Taken Reported Symptoms Increased Work of Breathing Post-test Oxygen Delivery Room Air Method Pulse Ox (%) 97 Pulse Rate (60-100 102 H beats/min) Dyspnea Cherie Scale ( 1 0-10) Exertion Cherie Scale 6 (6-20) Full Laps Walked 17 Partial Lap, Number 21 of Tiles Walked Total Distance 1024 Walked (ft) Interpretation Interpretation: The patient ambulated 1024 feet over the course of 6 minutes beginning on room air without assistive devices. Pretesting oxygen saturation was noted to be 96% on room air. With ambulation, the sabas oxygen saturation was 93%. There was no significant exertional oxygen desaturation. Recommendations Recommendations: There is no indication for the use of supplemental oxygen at this time.
== END | disposition home or self-care (01) ==
LOC: PSN 13:42
PROVIDERS: PCP Family Medicine; Referring Provider Family Medicine; Visit Provider Family Medicine
DX: J44.9 Chronic obstructive pulmonary disease, unspecified (principal)
CPT/HCPCS: 94618

== ENCOUNTER → 2025-10-18 | Outpatient (CLI) | payer BC, SELFPAY | END | disposition home or self-care (01) | LOC: PSN 12:58 | PROVIDERS: PCP Family Medicine; Referring Provider Family Medicine; Visit Provider Family Medicine | DX: J44.9 Chronic obstructive pulmonary disease, unspecified (principal) | CPT/HCPCS: 94060; 94726; 94729 ==

== ENCOUNTER → 2025-10-22 | Outpatient (CLI) | payer BC, SELFPAY ==
--- NOTE | 2025-10-22 17:36 | CT_ITS ---
PROCEDURE: LOW DOSE CT LUNG SCREENING 10/22/2025 REASON FOR EXAM: LUNG SCREENING TECHNIQUE: Procedure Code: [id number] Modality: CT Procedure: LOW DOSE CT LUNG SCREENING Coronal and Sagittal reconstruction series were provided. One or more dose reduction techniques were used (e.g., Automated exposure control, adjustment of the mA and/or kV according to patient size, use of iterative reconstruction technique). REFERENCE LINK: [facility] Lung-RADS COMPARISON: Chest radiographs dated 09/24/2025. FINDINGS: PULMONARY NODULES: (Only nodules >3mm are reported) A 7 mm irregularly shaped nodular density is noted in the lateral aspect of the right middle lobe (series 2 images [id number]). No other pulmonary nodule is identified. The remainder of the lungs is clear. Mild atherosclerotic calcifications. The heart is normal in size. A left-sided cardiac pacemaker is noted. No thoracic lymphadenopathy. No acute osseous abnormality. CT/Low Dose CT Lung Screening IMPRESSION: Lung-RADS Category: 4A SUSPICIOUS. RECOMMEND 3 MONTH LDCT; PET/CT MAY BE CONSID ERED IF THERE IS A >=8MM SOLID NODULE OR SOLID COMPONENT. Other Significant Findings: Mild atherosclerosis. Reading Location: [id number]
== END | disposition home or self-care (01) ==
LOC: CT 17:34
PROVIDERS: PCP Family Medicine; Referring Provider Family Medicine; Visit Provider Family Medicine
DX: Z12.2 Encounter for screening for malignant neoplasm of respiratory organs (principal)
CPT/HCPCS: 71271